=== PATIENT | female | born 1945 | race Caucasian/White ===

== ENCOUNTER 2019-03-04 12:33 | Emergency (ER) | payer OTHER ==
[~2019-03-04] VITALS: Ht 154.9 cm; Wt 63.5 kg
[~2019-03-04 12:33] MED LIST: ACETAMINOPHEN325 M1 PO; ASPIRIN EC81 M1 PO; AZITHROMYCIN 2250 MG; IBUPROFEN200 M2 PO; LEVAQUIN 500 M500 M4 PO; NOHOMEMEDICATIONS; PREDNISONE 5 MG5 MG PO; PROAIR HFA8.5 GM INH; PROVENTIL HFA6.7 G1 INH; SILVADENE20 GM TP; ZPAK PO
[2019-03-04 13:19] LABS: ABSOLUTE NEUTROPHILS 5.3 thou/uL (1.4-8.2); BASOPHILS 1.3 % (0.0-2.0); EOSINOPHILS 3.7 % (0.0-3.0); HEMATOCRIT 42.1 % (37.0-47.0); HEMOGLOBIN 13.7 gm/dL (12.0-15.0); LYMPHOCYTES 20.7 % (24.0-44.0); MCHC 32.5 g/dL (28.0-37.0); MCV 92.5 fL (80.0-100.0); MONOCYTES 6.6 % (1.0-8.0); PLATELET COUNT 266 thou/uL (150-400); POLYS 67.7 % (36.0-66.0); RBC 4.55 mil/uL (4.20-5.00); RDW 14.7 % (10.5-14.5); WBC 7.8 thou/uL (4.0-11.0)
[2019-03-04 13:23] LABS: ANION GAP 11 mmol/L (7-16); BUN 13 mg/dL (7-18); CALCIUM 9.8 mg/dL (8.5-10.1); CHLORIDE 106 mmol/L (98-107); CO2 27 mmol/L (21-32); CREATININE 1.1 mg/dL (0.6-1.0); GLUCOSE 96 mg/dL (74-106); POTASSIUM 3.7 mmol/L (3.5-5.1); SODIUM 144 mmol/L (136-145)
[2019-03-04 13:33] LABS: ALBUMIN 3.7 g/dL (3.4-5.0); MAGNESIUM 2.1 mg/dL (1.8-2.4); SGOT 32 U/L (15-37); SGPT 25 U/L (30-65); TOTAL BILIRUBIN 0.3 mg/dL (<0.1-1.0); TOTAL PROTEIN 7.5 g/dL (6.4-8.2); TROPONIN-I <0.06 ng/mL (<0.06)
[2019-03-04 13:59] LABS: URINE BILIRUBIN NEGATIVE (Negative); URINE BLOOD NEGATIVE (Negative); URINE CLARITY CLEAR; URINE COLOR YELLOW; URINE GLUCOSE-RANDOM* NEGATIVE (Negative); URINE KETONES NEGATIVE (Negative); URINE LEUKOCYTES-REFLEX NEGATIVE (Negative); URINE NITRITE-REFLEX NEGATIVE (Negative); URINE PROTEIN (DIPSTICK) NEGATIVE (Negative); URINE SPECIFIC GRAVITY <= 1.005 (1.005-1.035); URINE UROBILINOGEN 0.2 E.U./dl (0.2-1.0)
[2019-03-04] MEDS ORDERED: HYDROCHLOROTH12.5 M1 PO (14:05)
[2019-03-04 14:40] VITALS: BP 170/91
--- NOTE | 2019-03-07 13:10 | EKG ---
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
== END 2019-03-04 14:41 | disposition home or self-care (01) ==
LOC: ER 12:33
PROVIDERS: Emergency Medicine
DX: I10 Essential (primary) hypertension (principal); F17.210 Nicotine dependence, cigarettes, uncomplicated; Z86.73 Personal history of transient ischemic attack (TIA), and cerebral infarction without residual deficits; Z90.710 Acquired absence of both cervix and uterus

== ENCOUNTER 2020-02-03 23:28 | Emergency (ER) | payer OTHER ==
[~2020-02-03] VITALS: Ht 154.9 cm; Wt 56.7 kg
[~2020-02-03 23:28] MED LIST changes: +HYDROCHLOROTH12.5 M1 PO
[2020-02-04 00:41] LABS: ANION GAP 9 mmol/L (7-16); BUN 28 mg/dL (7-18); CALCIUM 9.2 mg/dL (8.5-10.1); CHLORIDE 104 mmol/L (98-107); CO2 27 mmol/L (21-32); CREATININE 1.3 mg/dL (0.6-1.0); GLUCOSE 147 mg/dL (74-106); POTASSIUM 4.1 mmol/L (3.5-5.1); SODIUM 140 mmol/L (136-145)
[2020-02-04 00:50] LABS: MAGNESIUM 1.9 mg/dL (1.8-2.4); TROPONIN-I <0.06 ng/mL (<0.06)
[2020-02-04 01:25] LABS: ABSOLUTE NEUTROPHILS 14.8 thou/uL (1.4-8.2); BASOPHILS 0.3 % (0.0-2.0); EOSINOPHILS 1.3 % (0.0-3.0); HEMATOCRIT 36.5 % (37.0-47.0); LYMPHOCYTES 2.3 % (24.0-44.0); MCH 30.1 pg (26.0-34.0); MCV 91.2 fL (80.0-100.0); MONOCYTES 2.9 % (1.0-8.0); PLATELET COUNT 307 thou/uL (150-400); POLYS 93.2 % (36.0-66.0); RBC 4.01 mil/uL (4.20-5.00); RDW 14.3 % (10.5-14.5); WBC 15.9 thou/uL (4.0-11.0)
[2020-02-04 03:30] LABS: URINE BILIRUBIN NEGATIVE (Negative); URINE BLOOD NEGATIVE (Negative); URINE CLARITY CLEAR; URINE COLOR YELLOW; URINE GLUCOSE-RANDOM* NEGATIVE (Negative); URINE KETONES NEGATIVE (Negative); URINE LEUKOCYTES-REFLEX NEGATIVE (Negative); URINE NITRITE-REFLEX NEGATIVE (Negative); URINE PROTEIN (DIPSTICK) NEGATIVE (Negative); URINE UROBILINOGEN 0.2 E.U./dl (0.2-1.0)
[2020-02-04 03:40] VITALS: BP 165/81
--- NOTE | 2020-02-04 15:26 | EKG ---
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
== END 2020-02-04 03:42 | disposition left against medical advice (07) ==
LOC: ER 23:28
PROVIDERS: Emergency Medicine
DX: D72.829 Elevated white blood cell count, unspecified (principal); R91.8 Other nonspecific abnormal finding of lung field; R26.2 Difficulty in walking, not elsewhere classified; R53.1 Weakness; F17.210 Nicotine dependence, cigarettes, uncomplicated; Z90.711 Acquired absence of uterus with remaining cervical stump; Z79.899 Other long term (current) drug therapy; Z88.6 Allergy status to analgesic agent

== ENCOUNTER 2020-11-08 06:58 | Inpatient (IN) | payer OTHER ==
[~2020-11-08] VITALS: Ht 160 cm; Wt 49.0 kg
[2020-11-08 07:16] VITALS: BP 144/67
[2020-11-08 07:54] LABS: BE(vivo) 1.5 mmol/L (-2 to +3); HCO3 24.3 mmol/L (22.0-26.0); PCO2 31.7 mmHg (35.0-45.0); pH 7.503 (7.360-7.450); sO2 93.3 % (92.0-98.0)
[2020-11-08 08:05] LABS: ABSOLUTE NEUTROPHILS 16.7 thou/uL (1.4-8.2); BASOPHILS 0.7 % (0.0-2.0); HEMATOCRIT 28.2 % (37.0-47.0); HEMOGLOBIN 8.8 gm/dL (12.0-15.0); LYMPHOCYTES 3.3 % (24.0-44.0); MCH 25.8 pg (26.0-34.0); MCHC 31.3 g/dL (28.0-37.0); MCV 82.3 fL (80.0-100.0); MONOCYTES 6.1 % (1.0-8.0); PLATELET COUNT 464 thou/uL (150-400); POLYS 89.9 % (36.0-66.0); RBC 3.43 mil/uL (4.20-5.00); RDW 14.4 % (10.5-14.5); WBC 18.6 thou/uL (4.0-11.0)
[2020-11-08 08:19] LABS: ANION GAP 7 mmol/L (7-16); BUN 19 mg/dL (7-18); CALCIUM 10.8 mg/dL (8.5-10.1); CHLORIDE 101 mmol/L (98-107); CO2 30 mmol/L (21-32); CREATININE 1.3 mg/dL (0.6-1.0); GLUCOSE 141 mg/dL (74-106); POTASSIUM 3.1 mmol/L (3.5-5.1); SODIUM 138 mmol/L (136-145)
[2020-11-08 08:23] LABS: ALBUMIN 2.6 g/dL (3.4-5.0); DIRECT BILIRUBIN 0.1 mg/dL (<0.1-0.2); MAGNESIUM 1.9 mg/dL (1.8-2.4); SGOT 17 U/L (15-37); SGPT 9 U/L (14-59); TOTAL BILIRUBIN 0.4 mg/dL (0.2-1.0); TOTAL PROTEIN 8.2 g/dL (6.4-8.2); TROPONIN-I <0.06 ng/mL (<0.06)
[2020-11-08] MEDS ORDERED: ZESTRIL5 MG PO (08:24)
[2020-11-08] MEDS ORDERED: LISINOPRIL-HCT1 EACH PO (08:25)
--- NOTE | 2020-11-08 08:58 | EKG ---
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
[2020-11-08 09:05] LABS: INR 1.06; PROTIME 11.5 Seconds (10.5-12.1)
[2020-11-08 09:06] LABS: APTT 29.1 Seconds (24.5-32.8)
[2020-11-08 14:08] VITALS: BP 108/52
[2020-11-08 14:38] VITALS: BP 119/59
[2020-11-08 15:00] VITALS: BP 120/54
--- NOTE | 2020-11-08 17:18 | NUR ---
PT TO THE UNIT FROM THE ER. ORIENTED TO ROOM AND BEDSPACE. ADMISSION ASSESSMENT/HISTORY COMPLETED WITH INFORMATION FROM . PT LIVES AT HOME WITH AND IS USUALLY INDEPENDANT WITH CARE - JUST TIRES EASILY. DOES USE A CANE AT TIME AND A WALKER WITH WHEELS/SEAT WHEN GOING LONG DISTANCES. PT TOE AND FINGER NAILS IN VERY POOR CONDITION - TOE NAILS EXTERELY LONG AND CURVY FROWING OUT FROM THE FOOT. FINEGER NAILS YELLOW BRON IN COLOUR AND CHIPED AND SPLIT. FAMILY IN TO VISIT PATIENT. PATIENT CONFUSED TO DATE/ TIME. NO CO'S AT THE PRESENT TIME.
[2020-11-08 19:55] VITALS: BP 116/54
[2020-11-09] VITALS (7 sets, daily range): BP systolic 116–147; BP diastolic 48–80
[2020-11-09 04:39] LABS: HEMATOCRIT 22.9 % (37.0-47.0); HEMOGLOBIN 7.3 gm/dL (12.0-15.0); MCH 26.5 pg (26.0-34.0); MCHC 31.7 g/dL (28.0-37.0); MCV 83.4 fL (80.0-100.0); RBC 2.74 mil/uL (4.20-5.00); RDW 14.3 % (10.5-14.5)
[2020-11-09 04:51] LABS: CALCIUM 9.8 mg/dL (8.5-10.1); POTASSIUM 3.3 mmol/L (3.5-5.1)
--- NOTE | 2020-11-09 14:05 | NUR ---
Case management assessment completed with the pt/her spouse Juan and a dtr Nelida. The pt is A&Ox3 but forgetful. Pt's spouse indicates that he is her caregiver although she is normally able to gait and do some of her adl's on her own. She has been needing more help recently and gets tired easily with any activity. They have 5 adult children and many grand kids that live locally and are very supportive and available to care for the pt when pt's spouse is outside the home. He still works odd mowing jobs; otherwise he is with her all the time. The eat breakfast out several times weekly and the pt continues to smoke. She indicates she has not intention of stopping but has cut back alot. The pt is being treated for pneumonia and has a hx of copd/cva. A lung mass was also found during her workup but she/spouse want to f/u with onc as an outpt. She is a DNR. She has a cane and a rolator walker for home use as needed. Pt's spouse notes they are getting a ramp for a couple of steps put in today. He does not want to consider hh/or snf referrals at md as he does not want her to be homebound or in a facility away from family. He is agreeable to outpt therapy referral here as he feels she could benefit from therapy but wants to be able to go out to eat or to the kids home as they desire or she is able. She has not gotten the covid vaccines as she is known to have had an allergic reaction to a recent flu shot. She is agreeable to home o2 and is aware of the risks with continued smoking. They would like a w/c as she is not able to walk distances at this time and they will need it to get her in/out to therapy and dr gonzalez. No DME provider preference; they just want an agency that accepts her [facility] medicare plan. Referral and clinical faxed to [facility] for home o2/w/c at md. Scripts requested for the dme as well as the outpt therapy from the attending/pcp Dr. Tobias. He will complete them in the am. Possible dc tomorrow. Pt and family aware that the lung mass may likely be cancer. They will f/u with her pcp for possible pall hh or hospice down the road. Support provided and cm role introduced.
--- NOTE | 2020-11-09 19:23 | NUR ---
ASSESSMENT CHARTED - MEDS PER JUL - NO CO'S OF PAIN OR NAUSEA - SEEN BY PHYS THERAPY THIS AM - EXERCISE OX DONE AND PT REQUIRING O2 FOR HOME USE. MEDS PER JUL. K+ REPLACED ORDERED .. FAMILY AT THE BEDSIDE FOR MOST OF THE SHIFT. ATE WELL TODAY FOR EACH MEAL STATING SHE WAS HUNGRY. PT TO GO HOME IN THE AM.
[2020-11-10] VITALS (8 sets, daily range): BP systolic 134–158; BP diastolic 58–94
[2020-11-10 04:36] LABS: HEMOGLOBIN 6.7 gm/dL (12.0-15.0)
[2020-11-10 04:37] LABS: HEMATOCRIT 20.6 % (37.0-47.0); MCH 27.1 pg (26.0-34.0); MCHC 32.7 g/dL (28.0-37.0); MCV 83.1 fL (80.0-100.0); RBC 2.48 mil/uL (4.20-5.00); RDW 14.3 % (10.5-14.5); WBC 15.8 thou/uL (4.0-11.0)
[2020-11-10 05:10] LABS: CALCIUM 9.1 mg/dL (8.5-10.1); POTASSIUM 3.1 mmol/L (3.5-5.1)
[2020-11-10] MEDS ORDERED: CEFDINIR300 MG PO (13:00)
--- NOTE | 2020-11-10 14:05 | NUR ---
Willy arrived and delivered oxygen and wc. Scripts on chart given to Willy. Patient has script for outpatient therapy as well. Rn aware of script to give to patient to arrange outpatiet therapy.
--- NOTE | 2020-11-10 16:36 | NUR ---
ASSUMED CARE SHIFT CHANGE. VSS. ASSESSMETNS CHARTED. HGB 6.7 THIS AM TRANSFUSED 2 UNITS PER ORDERS. PT BINH WELL. 2-3 L O2. AT APPROX 1530 PT BEGAN TO BECOME IRRITALBE PULLING OFF O2, ATTEMPTING TO GET OUT OF BED. FALL PRECAUTIONS REMAINED IN PLACE. PT MOVED TO 216. PHYSICIAN NOTIFIED, ORDERS RECEIVED. PT DID NOT WORK WITH PHYS THERAPY D/T LOW HGB. SPOUSE UPDATED ON POC, STATES THAT HOUSE IS NOT EQUIPPED FOR PT DC. PHYSICIAN NOTIFED, PLAN FOR DC TOMORROW AFTER PT WORKS WITH THERAPIES. PT INCONT B&B. STOOL OCCULT NEG. PT CURRENTLY LAYING DOWN, AGITATED AT TIMES. WILL CONT TO ASSESS NEEDS AND FOLLOW POC. WILL PASS ON REPORT TO FRANKLIN SEGURA.
--- NOTE | 2020-11-11 03:16 | NUR ---
PT IS ALERT TO SELF WITH SOME FOREGETATION. UP TO BATHROOM WITH ASSIST X1. LUNGS ARE CLEAR. ABDOMEN IS SOFT AND FLAT. DENIES ANY PAIN AT THIS TIME. WILL CONTINUE TO MONTIOR AND ASSESS PER MARISOLISNG. CALL LIGHT WITHIN REACH IF NEEDS ASSSISTANCE PER STAFFF
--- NOTE | 2020-11-11 03:54 | NUR ---
sleeping with sleep apnea machine on. vitals stable no complaints of pain noted . muniz to dd with yellow urine. blood sugars monitor with sliding scale insulin. will continue to moitor and assses per zeyad call light within reach if needs asssitance
[2020-11-11 04:02] VITALS: BP 158/84
--- NOTE | 2020-11-11 04:03 | NUR ---
pt is sleeping vitals stable. pt is alert to self with confusion noted. call light within reach if needs assstance. tries to get out of bed pccasionaly impulsive. bed alarm on pt be.for safety . denies any pain issues. watches tv during the night time. will continue to montior and assess per nursing
[2020-11-11 08:02] VITALS: BP 167/82
[2020-11-11 08:15] VITALS: BP 167/82
[2020-11-11 10:58] VITALS: BP 122/48
--- NOTE | 2020-11-11 11:48 | NUR ---
PT CARE ASSUMED AT 0700. ASSESSMENTS CHARTED. MEDICATIONS CHARTED. RH IV. SINUS RHYTHM. INCONTINENT OF URINE. 02 2LPM NC, HOME O2. HOME WHEELCHAIR. PT DISCHARGED TO HOME. DISCHARGE PAPERWORK SIGNED. TELEMETRY D/C'D. IV D/C'D.
== END 2020-11-11 11:46 | disposition home or self-care (01) | DRG 871 ==
LOC: ER 06:58 → 2N 09:37 → EROBS 09:37 → 2N 15:01
PROVIDERS: Emergency Medicine; ADMIT Family Medicine; ATTEND Family Medicine
PROC: 30233N1 Transfusion of Nonautologous Red Blood Cells into Peripheral Vein, Percutaneous Approach (ICD-10-PCS; principal; 2020-11-10)
DX: A41.9 Sepsis, unspecified organism (principal); J18.9 Pneumonia, unspecified organism; J96.00 Acute respiratory failure, unspecified whether with hypoxia or hypercapnia; J44.1 Chronic obstructive pulmonary disease with (acute) exacerbation; J44.0 Chronic obstructive pulmonary disease with (acute) lower respiratory infection; D64.9 Anemia, unspecified; R91.8 Other nonspecific abnormal finding of lung field; I10 Essential (primary) hypertension; F17.210 Nicotine dependence, cigarettes, uncomplicated; F03.90 Unspecified dementia, unspecified severity, without behavioral disturbance, psychotic disturbance, mood disturbance, and anxiety; E87.6 Hypokalemia; Z20.822 Contact with and (suspected) exposure to COVID-19; Z90.710 Acquired absence of both cervix and uterus; Z79.82 Long term (current) use of aspirin; Z79.899 Other long term (current) drug therapy; I69.398 Other sequelae of cerebral infarction
CPT/HCPCS: 10081

== ENCOUNTER 2020-12-11 05:25 | Inpatient (IN) | payer OTHER ==
[~2020-12-11] VITALS: Ht 162.6 cm; Wt 47.6 kg
--- NOTE | ~2020-12-11 | EMS ---
[address] [address] EMS Patient Care Report Name: LIVIA ZAVALA Room #: 436-P ADM IN M.R.#: [id number] Admission: 12/11/20 Attend Phys: Derick Tobias MD Discharge: Date of : 41 Report #: [id number] THIS REPORT FOR: //name// Report Transmitted: 12/12/2020 13:27 EMS Care Summary [place], [place] Incident [id number] @ 12/11/2020 04:52 Incident Location [address] [place] [address] Patient LIVIA ZAVALA Female, 75 Years 1945 Patient Address [address] [place] [address] Patient History Stroke/CVA,Willson's-Palsy, Patient Allergies No known allergies, Patient Medications Lisinopril, Aspirin, Chief Complaint Weakness Disposition Transported No Lights/[place] Dispatch Reason Sick Person Transported To [facility] Narrative AOS to find the pt sitting on the couch, the pt's called 911 stating the pt was very weak and had not been eating. The pt was very weak and unable to stand or ambulate by herself. The pt was transported to [facility] where care [place] [address] EMS Patient Care Report Name: LIVIA ZAVALA Room #: 436-P ADM IN M.R.#: [id number] Admission: 12/11/20 Attend Phys: Derick Tobias MD Discharge: Date of : 41 Report #: [id number] Initial Vitals @05:11SpO2: 92, @05:14P: 102,BP: 116/72,CO: 1,SpO2: 93, @05:01P: 108,R: 20,BP: 114/75,Pain: 0/10,GCS: 15,Glucose: 166,CO: 0,SpO2: 93,Revised Trauma: 12, Assessments @04:58MENTAL:Confused,Person Oriented,SKIN:Hot,HEENT:Head/Face: No Abnormalities,Neck/Airway: No Abnormalities,LUNG SOUNDS:General: No Abnormalities,Left Upper: No Abnormalities,Right Upper: No Abnormalities,Left Lower: No Abnormalities,Right Lower: No Abnormalities,ABDOMEN:General: No Abnormalities,Left Upper: No Abnormalities,Right Upper: No Abnormalities,Left Lower: No Abnormalities,Right Lower: No Abnormalities,PELVIS//GI:EXTREMITIES:Right Leg: Weakness,Left Leg: Weakness,Right Arm: Weakness,Left Arm: Weakness,Capillary Refill: Left Upper: < 2 Sec,Capillary Refill: Right Upper: < 2 Sec,PULSE:Radial: 2+ Normal,NEURO:No Abnormalities, Impression Generalized Weakness Timeline 04:50,Call Received 04:50,Dispatch Notified 04:52,Dispatched 04:53,En Route 04:56,On Scene 04:58,At Patient 05:01,BP: 114/75 M,PULSE: 108,RR: 20 R,SPO2: 93 Ox,ETCO2: ,B,PAIN: 0,GCS: 15, 05:11,BP: / M,PULSE: ,RR: R,SPO2: 92 Ox,ETCO2: ,BG: ,PAIN: ,GCS: , 05:12,Depart Scene 05:14,BP: 116/72 M,PULSE: 102,RR: R,SPO2: 93 Ox,ETCO2: ,BG: ,PAIN: ,GCS: , 05:20,At Destination 05:34,Call Closed Disclaimer v1.1 Copyright 2020 [employer] This EMS Care Summary contains data elements from the applicable legal record (which may be displayed differently). It is designed to provide pertinent information for the following purposes: continuity of care, clinical quality, and state data reporting. The complete legal record is available to ED staff and administrators of the receiving hospital in ES's Patient Tracker. All data is provided "as is."
[~2020-12-11 05:25] MED LIST changes: +CEFDINIR300 MG PO; +LISINOPRIL-HCT1 EACH PO; +ZESTRIL5 MG PO
[2020-12-11 05:26] VITALS: BP 149/79
[2020-12-11 05:49] LABS: URINE BILIRUBIN NEGATIVE (Negative); URINE BLOOD NEGATIVE (Negative); URINE CLARITY CLEAR; URINE COLOR YELLOW; URINE GLUCOSE-RANDOM* NEGATIVE (Negative); URINE KETONES NEGATIVE (Negative); URINE PROTEIN (DIPSTICK) NEGATIVE (Negative)
[2020-12-11 06:00] LABS: URINE LEUKOCYTES-REFLEX 1+ (Negative); URINE NITRITE-REFLEX POSITIVE (Negative)
[2020-12-11 06:04] LABS: ABSOLUTE NEUTROPHILS 8.3 thou/uL (1.4-8.2); BASOPHILS 0.8 % (0.0-2.0); EOSINOPHILS 1.3 % (0.0-3.0); HEMATOCRIT 30.7 % (37.0-47.0); HEMOGLOBIN 10.1 gm/dL (12.0-15.0); MCH 26.8 pg (26.0-34.0); MCHC 32.9 g/dL (28.0-37.0); MCV 81.3 fL (80.0-100.0); MONOCYTES 6.2 % (1.0-8.0); PLATELET COUNT 400 thou/uL (150-400); POLYS 82.7 % (36.0-66.0); RBC 3.78 mil/uL (4.20-5.00); RDW 15.7 % (10.5-14.5); WBC 10.1 thou/uL (4.0-11.0)
[2020-12-11 06:05] LABS: ALBUMIN 2.7 g/dL (3.4-5.0); ANION GAP 5 mmol/L (7-16); BUN 29 mg/dL (7-18); CHLORIDE 98 mmol/L (98-107); CO2 34 mmol/L (21-32); CREATININE 1.5 mg/dL (0.6-1.0); GLUCOSE 110 mg/dL (74-106); SGOT 21 U/L (15-37); SGPT 9 U/L (14-59); SODIUM 137 mmol/L (136-145); TOTAL BILIRUBIN 0.5 mg/dL (0.2-1.0); TOTAL PROTEIN 7.8 g/dL (6.4-8.2); TROPONIN-I <0.06 ng/mL (<0.06)
[2020-12-11 06:07] LABS: CALCIUM 12.3 mg/dL (8.5-10.1)
[2020-12-11 06:10] LABS: CASTS None Seen /LPF (None Seen); MUCUS 0-3 Light strn/LPF (None Seen); SQUAMOUS 0-3 Few /LPF (0-3)
[2020-12-11 06:11] LABS: CRYSTALS None Seen /LPF (None Seen); URINE RBC None Seen /HPF (NONE SEEN); URINE WBC-REFLEX 6-15 Few /HPF (0-5); WBC CLUMPS Few (None Seen)
--- NOTE | 2020-12-11 07:51 | EKG ---
[place] [address] [facility] [address] ELECTROCARDIOGRAM REPORT Name: LIVIA ZAVALA Room #: [facility] [id number] Admission: 12/11/20 Attend Phys: Discharge: Date of : 41 Report #: [id number] 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
[2020-12-11 08:22] VITALS: BP 126/52
[2020-12-11 09:00] VITALS: BP 118/61
[2020-12-11 13:41] LABS: CREATININE 1.3 mg/dL (0.6-1.0); PHOSPHORUS 2.6 mg/dL (2.6-4.7)
[2020-12-11 19:38] VITALS: BP 145/78
--- NOTE | 2020-12-11 22:45 | NUR ---
ASSUMED PT CARE AT 0900 FROM ED. PT IS ALERT & ORIENTED X3 PERSON, PLACE, SITUATION. PT HAS IV SITE ON R FA. FINISHED ADMISSION THIS AM. GIVEN POTASSIUM ORDERED. PT HAS 2L NC 02. PT HAS DENTURES ON. PT VOIDED DURING THE SHIFT. PT WAS AT THE BEDSIDE. CONTINUE CARE UNTIL 2300. PT ON THE BED SLEEPING WITH SCD ON, BED ON THE LOWEST POSITION, SIDE RAILS UP, CALL LIGHT WITHIN REACH. WILL CONTINUE TO MONITOR PT. FOLLOW POC.
[2020-12-12 03:34] LABS: HEMATOCRIT 25.5 % (37.0-47.0); HEMOGLOBIN 8.4 gm/dL (12.0-15.0); MCHC 32.9 g/dL (28.0-37.0); RBC 3.1 mil/uL (4.20-5.00); RDW 15.8 % (10.5-14.5); WBC 8.4 thou/uL (4.0-11.0)
[2020-12-12 03:51] LABS: ALBUMIN 2.1 g/dL (3.4-5.0); CREATININE 1.1 mg/dL (0.6-1.0); POTASSIUM 3.3 mmol/L (3.5-5.1); TOTAL BILIRUBIN 0.3 mg/dL (0.2-1.0); TOTAL PROTEIN 5.7 g/dL (6.4-8.2)
--- NOTE | 2020-12-12 04:01 | NUR ---
CONT CARE OF PT @2300 PT RESTING IN BED. IV INTACT AND FLUIDS INFUSING. PT INCONTINENT OF BLADDER. PERICARE PROVIDED. FALL PREC IN PLACE. NO FURTHER SIGNS OF DISCOMFORT WILL CONT TO MONITOR.
[2020-12-12 04:27] LABS: CALCIUM 9.9 mg/dL (8.5-10.1)
[2020-12-12 08:16] VITALS: BP 151/67
--- NOTE | 2020-12-12 11:45 | NUR ---
ASSUMD CARE OF PT AT 0700 HIS MORNING. PT IS ADMITED FOR UTI AND WEAKNESS. PT IS EIPPNOV1KAE WITH 1X ASST. SKIN IS INTACT WITH NO TENTING. EYES PERRLA AND LUNGS ARE CLEAR IN UPPER ALANIS AND SLIGHTLY DIMINISHED IN THE LOWER. CR<3SECX4 AND DISTAL PULSES ARE STRONG AND =. ASSESSMENTS NOTED IN THE CHART AND OTHERWISE UNREMARKABLE. IV IN RT FA WITH NS AT 100ML/HR. CALL LIGHT AND OTHER NEEDS ARE WITHIN REACH. MEDS AND TX GIVEN NEEDED AND SCHEDULED.
--- NOTE | 2020-12-12 14:03 | NUR ---
ASSESSMENT: CM REVIEWED CHART AND MET WITH PATIENT AT THE BEDSIDE. PT IS CONFUSED. PT WAS ADMITTED WITH INCREASED WEAKNESS. CM REACHED OUT TO PATIENTS . PT LIVES AT HOME WITH HIM IN A RANCH STYLE HOME. PT HAS A RAMP TO ENTER THE HOME AND ALL NEEDS ARE ON ONE LEVEL. PT HAS A WHEELCHAIR AT HOME TO ASSIST AND IS HER PRIMARY CARE PROVIDER. PT ALSO HAS 5 ADULT CHILDREN WHO ARE VERY SUPPORTIVE AND HELPFUL. PT WAS GOING TO OUTPATIENT THERAPY HERE AT [facility] AND DOING WELL. PT HAS OXYGEN ARRANGED AT HOME THROUGH [facility] AND [facility] 2L AT HER BASELINE. PT HAS HX OF LUNG MASS/DEMENITA BUT DOES NOT WANT A WORKUP FOR CANCER. CM SPOKE WITH ATTENDING WHO REPORTS PT MAY BENEFIT FROM PALLIATIVE/HOSPICE CARE. CM REACHED OUT TO PATIENTS OT DISCUSS. HE REPORTS THEY DO NOT LIKE PEOPLE IN THEIR HOME AND HE REPORTS HAVING SO MUCH SUPPORT FROM FAMILY HE WISHES TO RETURN TO HOW THINGS WERE. CM EDUCATED ON BENEFITS SERVICES OF HH/PALLIATIVE/HOSPICE CARE BUT THEY ARE DECLINING AT THIS TIME. CM UPDATED ATTENDING. CM WILL CONTINUE TO FOLLOW TO ASSIST NEEDED.
[2020-12-12 16:41] VITALS: BP 126/70
[2020-12-12 19:05] VITALS: BP 117/52
--- NOTE | 2020-12-13 03:14 | NUR ---
ASSESSED AT START OF SHIFT. PT A&OX2 HX OF DEMENTIA. RESTING IN BED. IV INTACT AND FLUIDS INFUSING. DENIES PAIN N/V. ON 2L OF O2 BASELINE. PT INCONTINET OF BLADDER PERICARE PROVIDED. FALL PREC IN PLACE AND CALL LIGHT AT REACH WILL CONT TO MONITOR.
[2020-12-13 04:37] VITALS: BP 136/68
[2020-12-13 07:50] VITALS: BP 130/70
--- NOTE | 2020-12-13 15:04 | NUR ---
ON-GOING ASSESSMENT: CM REVIEWED CHART AND SPOKE WITH ATTENDING. PT REMAINS ON IV LASIX AND FLUIDS. PT CONTINUES TO WORK WITH PT. PT AND DECLINING SNF/HH/HOSPICE. PLANS TO RETURN LIKELY HOME TOMORROW WITH TO ASSIST WITH CARE.
[2020-12-13 16:43] VITALS: BP 142/68
[2020-12-13 19:03] VITALS: BP 144/65
--- NOTE | 2020-12-13 19:36 | NUR ---
ASSUMED PT CARE THIS AM. PT IS ALERT & ORIENTED X2 PERSON AND PLACE. PT HAS IV SITE ON R FA RUNNING NS @ 100ML/HR. PT HAS EXTERNAL CATH IN PLACE AND USES BEDPAN. PHYSICAL AND OCCUPATIONAL THERAPY WAS WORKING WITH PATIENT TODAY. PT IS INCONTINENT OF BOWEL AND BLADDER. PT IS ON 2L NC O2. PT HAS POOR APPETITE. NO C/O OF PAIN, NAUSEA AND VOMITING. PROBABLY DC TOMORROW PER DR ACOSTA. PT ON THE BED, BED ON THE LOWEST POSITION, SIDE RAILS UP, CALL LIGHT WITHIN REACH. WILL CONTINUE TO MONITOR PT. FOLLOW POC.
--- NOTE | 2020-12-14 01:53 | NUR ---
ASSESSED AT START OF SHIFT. PT RESTING IN BED. DENIES PAIN NAUSEA, VOMITING. IV INTACT AND FLUIDS INFUSING. PT INCONTINENT OF BLADDER. EVENING MEDS GIVEN WITH SIPS OF WATER, PT BINH IT WELL. ON 2L OF O2. HOURLY ROUNDING DONE, PT REPOSITIONED FOR COMFORT. FALL PREC IN PLACE AND CALL LIGHT AT REACH WILL CONT TO MONITOR.
[2020-12-14 04:29] VITALS: BP 136/60
[2020-12-14 07:30] VITALS: BP 132/70
[2020-12-14] MEDS ORDERED: CIPROFLOXACIN250 M2 PO (07:58)
[2020-12-14 08:58] LABS: HEMOGLOBIN 8.7 gm/dL (12.0-15.0); MCH 26.4 pg (26.0-34.0); MCHC 32.1 g/dL (28.0-37.0); MCV 82.3 fL (80.0-100.0); RBC 3.27 mil/uL (4.20-5.00); RDW 16.1 % (10.5-14.5); WBC 8.9 thou/uL (4.0-11.0)
[2020-12-14 09:07] LABS: CALCIUM 8.7 mg/dL (8.5-10.1); CREATININE 1.1 mg/dL (0.6-1.0)
[2020-12-14 09:13] LABS: POTASSIUM 2.8 mmol/L (3.5-5.1)
[2020-12-14] MEDS ORDERED: KLOR-CON M2020 MEQ PO (10:41)
[2020-12-14 11:00] VITALS: BP 132/70
--- NOTE | 2020-12-14 11:02 | NUR ---
on-going assessment: CM REVIEWED CHART AND SPOKE WITH PT AT THE BEDSIDE. PT AND CONTINUE TO DENY THE NEED FOR HH/HOSPICE/PALLIATIVE CARE/ OR SNF. PT WISHES TO RETURN HOME WITH THEY WERE PRIOR TO ADMISSION. CM REPORTED TO PTS AND PT THAT IF THEY CHANGE THEIR MIND TO CONTACT PCP AND HE CAN ORDERS HH. PT AND REPORT NO FURTHER NEEDS FROM CM.
== END 2020-12-14 11:38 | disposition home or self-care (01) | DRG 180 ==
LOC: ER 05:25 → 4S 08:16 → EROBS 08:16 → 4S 08:38
PROVIDERS: Emergency Medicine; Hospitalist; ADMIT Family Medicine; ATTEND Family Medicine
DX: C34.90 Malignant neoplasm of unspecified part of unspecified bronchus or lung (principal); N17.0 Acute kidney failure with tubular necrosis; E43 Unspecified severe protein-calorie malnutrition; N39.0 Urinary tract infection, site not specified; Z68.1 Body mass index [BMI] 19.9 or less, adult; I69.351 Hemiplegia and hemiparesis following cerebral infarction affecting right dominant side; E83.52 Hypercalcemia; E87.6 Hypokalemia; R53.81 Other malaise; D63.8 Anemia in other chronic diseases classified elsewhere; B96.5 Pseudomonas (aeruginosa) (mallei) (pseudomallei) as the cause of diseases classified elsewhere; J45.909 Unspecified asthma, uncomplicated; F03.90 Unspecified dementia, unspecified severity, without behavioral disturbance, psychotic disturbance, mood disturbance, and anxiety; J44.9 Chronic obstructive pulmonary disease, unspecified; I10 Essential (primary) hypertension; Z90.710 Acquired absence of both cervix and uterus; Z71.6 Tobacco abuse counseling; Z20.822 Contact with and (suspected) exposure to COVID-19
CPT/HCPCS: 10102

== ENCOUNTER 2020-12-21 15:50 | Inpatient (IN) | payer OTHER ==
[~2020-12-21] VITALS: Ht 152.4 cm; Wt 49.9 kg
[~2020-12-21 15:50] MED LIST changes: +CIPROFLOXACIN250 M2 PO; +KLOR-CON M2020 MEQ PO
[2020-12-21 16:03] VITALS: BP 104/81
[2020-12-21 17:38] LABS: ABSOLUTE NEUTROPHILS 8.4 thou/uL (1.4-8.2); BASOPHILS 0.8 % (0.0-2.0); EOSINOPHILS 1.9 % (0.0-3.0); HEMATOCRIT 30.4 % (37.0-47.0); HEMOGLOBIN 9.9 gm/dL (12.0-15.0); LYMPHOCYTES 11.3 % (24.0-44.0); MCH 26.8 pg (26.0-34.0); MCHC 32.6 g/dL (28.0-37.0); MCV 82.1 fL (80.0-100.0); MONOCYTES 8.7 % (1.0-8.0); PLATELET COUNT 436 thou/uL (150-400); POLYS 77.3 % (36.0-66.0); RDW 16.4 % (10.5-14.5); WBC 10.9 thou/uL (4.0-11.0)
[2020-12-21 17:49] LABS: CALCIUM 8.5 mg/dL (8.5-10.1); CREATININE 1.2 mg/dL (0.6-1.0); POTASSIUM 3.1 mmol/L (3.5-5.1)
[2020-12-21 17:55] LABS: ALBUMIN 2.5 g/dL (3.4-5.0); TOTAL BILIRUBIN 0.5 mg/dL (0.2-1.0); TOTAL PROTEIN 7.7 g/dL (6.4-8.2)
--- NOTE | 2020-12-21 18:00 | NUR ---
PER DR. ACOSTA PT IS TO BE ADMITTED TO THE REHAB UNIT BUT NEEDS TO GO TO THE COVID UNIT PT HAS HAD COVID-19 EXPOSURE FROM SPOUSE WHO IS CURRENTLY AT PT IN THIS HOSPITAL. PT STATED TO HAVE RECENT DX OF LUNG CA AND IS REFUSING ALL TX. PT HAS HX OF DEMENTIA, UNSURE OF PT ACTUAL BASELINE. UNABLE TO OBTAIN FULL HX OR ASSESSMENT PT IS NOT A GOOD HISTORIAN AND PT NOT WANTING RN TO ASSESS HER. PT IS EMACIATED IN APPEARS, SKIN COLOR IS TEMPLE AND DUSKY, PT DENIES PAIN SOB OR ANY S/S. PT VSS ON RA. CALL LIGHT IS WITHIN REACH AND ENCOURAGED TO USE. PT COVERED WITH WARM BLANKETS.
--- NOTE | 2020-12-21 19:07 | NUR ---
REPORT GIVEN TO COLTON HARMON AT THIS TIME
[2020-12-21 19:52] LABS: URINE BLOOD NEGATIVE (Negative); URINE CLARITY CLEAR; URINE COLOR YELLOW; URINE GLUCOSE-RANDOM* NEGATIVE (Negative); URINE KETONES NEGATIVE (Negative); URINE NITRITE-REFLEX NEGATIVE (Negative); URINE PROTEIN (DIPSTICK) TRACE (Negative); URINE SPECIFIC GRAVITY 1.025 (1.005-1.035)
[2020-12-21 20:01] LABS: URINE LEUKOCYTES-REFLEX 2+ (Negative)
[2020-12-21 20:03] LABS: ICTOTEST (BILI CONFIRMATORY) Negative (Negative); URINE BILIRUBIN NEGATIVE (Negative)
[2020-12-21 20:06] LABS: SQUAMOUS 4-10 Moderate /LPF (0-3)
[2020-12-21 20:07] LABS: HYALINE CASTS 4-10 Moderate /LPF (None Seen)
[2020-12-21 20:08] LABS: BACTERIA-REFLEX 1-9 Few /HPF (None Seen); CRYSTALS None Seen /LPF (None Seen); URINE RBC None Seen /HPF (NONE SEEN); URINE WBC-REFLEX 6-15 Few /HPF (0-5); YEAST-REFLEX Present (None Seen)
[2020-12-21 20:39] VITALS: BP 98/59
[2020-12-22 03:17] VITALS: BP 118/70
[2020-12-22 05:09] LABS: HEMATOCRIT 25.5 % (37.0-47.0); HEMOGLOBIN 8.5 gm/dL (12.0-15.0); MCH 26.9 pg (26.0-34.0); MCHC 33.4 g/dL (28.0-37.0); MCV 80.7 fL (80.0-100.0); RBC 3.16 mil/uL (4.20-5.00); RDW 16.8 % (10.5-14.5)
[2020-12-22 05:26] LABS: CALCIUM 7.3 mg/dL (8.5-10.1); CREATININE 1.1 mg/dL (0.6-1.0)
[2020-12-22 05:32] LABS: POTASSIUM 2.5 mmol/L (3.5-5.1)
--- NOTE | 2020-12-22 09:51 | EKG ---
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
[2020-12-22 15:30] VITALS: BP 122/45
--- NOTE | 2020-12-22 16:10 | NUR ---
ASSUMED CARE AT SHIFT CHANGE. PT A/ O X 1-2. WEAK AND FRAIL. PT STATES SHE JUST WANTS TO GO HOME. POOR APPETITE. DISCHARGING TO HOME TODAY AND WANTS TO TAKE PT HOME WELL. DR ACOSTA NOTIFIED. PT TO DC HOME WITH SPOUSE AND CHILDREN THIS AFTERNOON. F/U WITH DR ACOSTA'S OFFICE. IV ZOSYN DOSE COMPLETED BEFORE DISCHARGE. DC AND FU INFO GIVEN, PT ASSISTED TO CAR VIA WC WITH RN AND FAMILY. IV REMOVED PRIOR TO DC.
[2020-12-22 16:14] VITALS: BP 147/85
== END 2020-12-22 16:15 | disposition home or self-care (01) | DRG 690 ==
LOC: ER 15:50 → EROBS 23:21
PROVIDERS: Nurse Practitioner Family; ADMIT Family Medicine; ATTEND Family Medicine
DX: N30.01 Acute cystitis with hematuria (principal); F03.91 Unspecified dementia, unspecified severity, with behavioral disturbance; J45.909 Unspecified asthma, uncomplicated; J44.9 Chronic obstructive pulmonary disease, unspecified; I10 Essential (primary) hypertension; E87.6 Hypokalemia; Z20.822 Contact with and (suspected) exposure to COVID-19; R53.81 Other malaise; F17.210 Nicotine dependence, cigarettes, uncomplicated; Z86.73 Personal history of transient ischemic attack (TIA), and cerebral infarction without residual deficits; Z90.710 Acquired absence of both cervix and uterus; Z85.118 Personal history of other malignant neoplasm of bronchus and lung; Z91.19 Patient's noncompliance with other medical treatment and regimen

== ENCOUNTER 2020-12-29 12:43 | Emergency (ER) | payer OTHER ==
[~2020-12-29] VITALS: Ht 152.4 cm; Wt 45.4 kg
--- NOTE | ~2020-12-29 | EMS ---
[address] [address] EMS Patient Care Report Name: LIVIA ZAVALA Room #: DEP VANDANA Lombardo#: [id number] Admission: 12/29/20 Attend Phys: Discharge: 12/29/20 Date of : 41 Report #: [id number] THIS REPORT FOR: //name// Report Transmitted: 01/01/2021 12:05 EMS Care Summary [place], [place] Incident [id number] @ 12/29/2020 12:01 Incident Location [address] [place] [address] Patient LIVIA ZAVALA Female, 75 Years 1945 Patient Address [address] [place] [address] Patient History Stroke/CVA,Willson's-Palsy, Patient Allergies No known allergies, Patient Medications Aspirin, Lisinopril, Chief Complaint Nausea and Vomiting Disposition Transported No Lights/[place] Dispatch Reason Convulsions/Seizure Transported To [facility] Narrative Medic 39 was dispatched to a seizure. Upon arrival patient is a 75 year old female who is alert and oriented. Patient's on location stated "she was just sitting in the chair and slouched back and it looked like she had a seizure that lasted 5 seconds." Patient did not [place] [address] EMS Patient Care Report Name: LIVIA ZAVALA Room #: DEP [facility].#: [id number] Admission: 12/29/20 Attend Phys: Discharge: 12/29/20 Date of : 41 Report #: [id number] pain or difficulty breathing. Vital signs were obtained and monitored. Patient wanted to be transported to the hospital to be evaluated. During transport no changes noted. Upon arrival of our destination the crew was advised to take the patient to ER room 1 where the crew was met by nursing staff. Patient care report was given to staff and they did not have any questions for the crew. Medic 39 returned to service. Anaya Dave NRP Initial Vitals @12:16P: 92,R: 18,BP: 104/64,Pain: 0/10,GCS: 15,Glucose: 141,SpO2: 92,Revised Trauma: 12,OH Suspected: false @12:30P: 98,R: 18,BP: 99/65,Pain: 0/10,GCS: 15,SpO2: 98,Revised Trauma: 12, Assessments @12:15MENTAL:Place Oriented,Time Oriented,Person Oriented,Event Oriented,SKIN:HEENT:Head/Face: No Abnormalities,Eyes: No Abnormalities,Neck/Airway: No Abnormalities,LUNG SOUNDS:General: No Abnormalities,Left Upper: No Abnormalities,Right Upper: No Abnormalities,Left Lower: No Abnormalities,Right Lower: No Abnormalities,ABDOMEN:General: No Abnormalities,Left Upper: No Abnormalities,Right Upper: No Abnormalities,Left Lower: No Abnormalities,Right Lower: No Abnormalities,PELVIS//GI:No Abnormalities,EXTREMITIES:Left Arm: No Abnormalities,Right Arm: No Abnormalities,Left Leg: No Abnormalities,Right Leg: No Abnormalities,PULSE:NEURO:No Abnormalities, Impression Vomiting Procedures @12:15ALS AssessmentResponse: UnchangedSucceeded@12:17StretcherResponse: Unchanged@12:22Saline Lock 10cc (20 ga) Site: Antecubital-RightResponse: UnchangedSucceeded@12:163-Lead ECGResponse: UnchangedSucceeded Timeline 11:59,Call Received 11:59,Dispatch Notified 12:01,Dispatched 12:01,En Route 12:14,On Scene 12:15,At Patient 12:15,ALS Assessment,Response: UnchangedSucceeded, 12:16,3-Lead ECG,Response: UnchangedSucceeded, [facility] [address] [address] EMS Patient Care Report Name: LIVIA ZAVALA Room #: DANIKA Lombardo#: [id number] Admission: 12/29/20 Attend Phys: Discharge: 12/29/20 Date of : 41 Report #: [id number] 12:16,BP: 104/64 M,PULSE: 92,RR: 18 R,SPO2: 92 Ox,ETCO2: ,B,PAIN: 0,GCS: 15, 12:17,Stretcher,Response: Unchanged 12:22,Saline Lock 10cc 20 ga Site: Antecubital-Right,Response: UnchangedSucceeded, 12:24,Depart Scene 12:30,BP: 99/65 M,PULSE: 98,RR: 18 R,SPO2: 98 Ox,ETCO2: ,BG: ,PAIN: 0,GCS: 15, 12:45,At Destination 12:53,Call Closed Disclaimer v1.1 Copyright 2020 [employer] This EMS Care Summary contains data elements from the applicable legal record (which may be displayed differently). It is designed to provide pertinent information for the following purposes: continuity of care, clinical quality, and state data reporting. The complete legal record is available to ED staff and administrators of the receiving hospital in [employer]'s Patient Tracker. All data is provided "as is."
[2020-12-29 13:11] LABS: ABSOLUTE NEUTROPHILS 8.3 thou/uL (1.4-8.2); BASOPHILS 0.7 % (0.0-2.0); EOSINOPHILS 0.9 % (0.0-3.0); HEMATOCRIT 27.4 % (37.0-47.0); HEMOGLOBIN 8.8 gm/dL (12.0-15.0); LYMPHOCYTES 8.9 % (24.0-44.0); MCH 26.1 pg (26.0-34.0); MCHC 32.2 g/dL (28.0-37.0); PLATELET COUNT 374 thou/uL (150-400); POLYS 83.5 % (36.0-66.0); RBC 3.38 mil/uL (4.20-5.00); RDW 16.3 % (10.5-14.5)
[2020-12-29 13:36] LABS: ANION GAP 9 mmol/L (7-16); BUN 12 mg/dL (7-18); CALCIUM 9.9 mg/dL (8.5-10.1); CHLORIDE 99 mmol/L (98-107); CO2 28 mmol/L (21-32); CREATININE 1.1 mg/dL (0.6-1.0); GLUCOSE 140 mg/dL (74-106); MAGNESIUM 1.6 mg/dL (1.8-2.4); SODIUM 136 mmol/L (136-145); TROPONIN-I <0.06 ng/mL (<0.06)
[2020-12-29 13:39] LABS: POTASSIUM 2.4 mmol/L (3.5-5.1)
[2020-12-29 16:10] LABS: URINE BLOOD NEGATIVE (Negative); URINE CLARITY CLEAR; URINE COLOR YELLOW; URINE GLUCOSE-RANDOM* NEGATIVE (Negative); URINE KETONES 1+ (Negative); URINE NITRITE-REFLEX NEGATIVE (Negative); URINE PROTEIN (DIPSTICK) NEGATIVE (Negative); URINE SPECIFIC GRAVITY 1.025 (1.005-1.035); URINE UROBILINOGEN 0.2 E.U./dl (0.2-1.0)
[2020-12-29 16:22] LABS: URINE LEUKOCYTES-REFLEX 1+ (Negative)
[2020-12-29 16:24] LABS: ICTOTEST (BILI CONFIRMATORY) Negative (Negative); URINE BILIRUBIN NEGATIVE (Negative)
[2020-12-29 16:34] LABS: CASTS None Seen /LPF (None Seen); SQUAMOUS 0-3 Few /LPF (0-3); URINE RBC None Seen /HPF (NONE SEEN)
[2020-12-29 16:35] LABS: BACTERIA-REFLEX 1-9 Few /HPF (None Seen); CRYSTALS None Seen /LPF (None Seen); YEAST-REFLEX Present (None Seen)
[2020-12-29] MEDS ORDERED: KLOR-CON20 ME1 PO (17:43)
[2020-12-29 18:14] VITALS: BP 135/68
--- NOTE | 2020-12-30 08:45 | EKG ---
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: : 1945 Requested By: Joaquina Preston Order Number: [id number] MD: Franklyn Singh Measurements Intervals [place] Rate: 87 P: 77 [place]: 174 QRS: -59 QRSD: 134 T: 101 QT: 442 QTc: 532 Interpretive Statements Sinus rhythm Left bundle branch block Baseline wander in lead(s) V1 Compared to ECG 12/21/2020 17:11:56 No significant changes Electronically Signed On 12-30-2020 8:45:36 CDT by Franklyn Singh [email or web address] <ELECTRONICALLY SIGNED> By: Franklyn Singh MD, [facility] 12/30/20 0845 [id number] Franklyn Singh MD, FAC /EPI
== END 2020-12-29 18:15 | disposition home or self-care (01) ==
LOC: ER 12:43
PROVIDERS: Emergency Medicine
DX: R56.9 Unspecified convulsions (principal); J44.9 Chronic obstructive pulmonary disease, unspecified; I10 Essential (primary) hypertension; F17.210 Nicotine dependence, cigarettes, uncomplicated; Z20.822 Contact with and (suspected) exposure to COVID-19; Z86.73 Personal history of transient ischemic attack (TIA), and cerebral infarction without residual deficits; Z90.711 Acquired absence of uterus with remaining cervical stump; Z79.899 Other long term (current) drug therapy; Z79.891 Long term (current) use of opiate analgesic

== ENCOUNTER 2021-01-06 11:33 | Inpatient (IN) | payer OTHER ==
[~2021-01-06] VITALS: Ht 154.9 cm; Wt 36.3 kg
--- NOTE | ~2021-01-06 | EMS ---
[address] [address] EMS Patient Care Report Name: LIVIA ZAVALA Room #: 451-P ADM IN M.R.#: [id number] Admission: 01/06/21 Attend Phys: Lee Ann Carpenter Discharge: Date of : 41 Report #: [id number] THIS REPORT FOR: //name// Report Transmitted: 01/08/2021 14:28 EMS Care Summary [place], [place] Incident [id number] @ 01/06/2021 11:00 Incident Location [address] [place] [address] Patient LIVIA ZAVALA Female, 75 Years 1945 Patient Address [address] [place] [address] Patient History Dementia,Stroke/CVA,Lung Cancer,Urinary Tract Infection (UTI),Willson's-Palsy, Patient Allergies No known allergies, Patient Medications Lisinopril, Aspirin, Chief Complaint increasing weakness Disposition Transported No Lights/[place] Dispatch Reason Sick Person Transported To [facility] Narrative Arrived to find pt in front living room. states pt has dementia and lung cancer but he is concerned because she has had an increase in overall weakness and a decrease in appetite over the last week. He states she is acting like she has a UTI. did test positive for Covid 2 weeks ago[address] [address] EMS Patient Care Report Name: LIVIA ZAVALA Room #: 451-P ADM IN M.R.#: [id number] Admission: 01/06/21 Attend Phys: Lee Ann Carpenter Discharge: Date of : 41 Report #: [id number] shows the pt vaccination card which shows she has had dose one of two of the Pfeizer shot. states she has tested negative for covid "every time and last tested negative last week". Pt is lifted onto cot and secured with cot straps. Pt placed in mask. Pt placed in back of unit and transported without incident. Care to RN, rm 2. Initial Vitals @11:14P: 100,BP: 132/74,CO: 0,SpO2: 99, @11:16P: 89,BP: 138/82, @11:16P: 91,R: 16,Pain: 0/10,GCS: 14,Glucose: 107,CO: 1,SpO2: 99, Assessments @11:12MENTAL:Confused,SKIN:HEENT:Head/Face: No Abnormalities,Eyes: No Abnormalities,Neck/Airway: No Abnormalities,LUNG SOUNDS:General: No Abnormalities,Left Upper: No Abnormalities,Right Upper: No Abnormalities,Left Lower: No Abnormalities,Right Lower: No Abnormalities,ABDOMEN:General: No Abnormalities,Left Upper: No Abnormalities,Right Upper: No Abnormalities,Left Lower: No Abnormalities,Right Lower: No Abnormalities,PELVIS//GI:No Abnormalities,EXTREMITIES:Left Arm: No Abnormalities,Right Arm: No Abnormalities,Left Leg: No Abnormalities,Right Leg: No Abnormalities,PULSE:NEURO: Impression Generalized Weakness Procedures @11:12ALS AssessmentResponse: UnchangedSucceeded@PTAOxygen FlowRate: 2 Device: Nasal Cannula (NC) Succeeded Timeline PRECONSTRUCTION MANAGER,Oxygen FlowRate: 2 Device: Nasal Cannula (NC) Succeeded, 10:59,Call Received 10:59,Dispatch Notified 11:00,Dispatched 11:01,En Route 11:07,On Scene 11:10,At Patient 11:12,ALS Assessment,Response: UnchangedSucceeded, 11:14,BP: 132/74 M,PULSE: 100,RR: R,SPO2: 99 Ox,ETCO2: ,BG: ,PAIN: ,GCS: , 11:16,BP: / M,PULSE: 91,RR: 16 R,SPO2: 99 Ox,ETCO2: ,B,PAIN: 0,GCS: 14, 11:16,BP: 138/82 M,PULSE: 89,RR: R,SPO2: Ox,ETCO2: ,BG: ,PAIN: ,GCS: , 11:18,Depart Scene 11:29,At Destination 11:37,Call Closed Disclaimer [facility] [address] [place] [address] EMS Patient Care Report Name: LIVIA ZAVALA Room #: 451-P ADM IN M.R.#: [id number] Admission: 01/06/21 Attend Phys: Lee Ann Carpenter Discharge: Date of : 41 Report #: [id number] v1.1 Copyright 2020 [employer] This EMS Care Summary contains data elements from the applicable legal record (which may be displayed differently). It is designed to provide pertinent information for the following purposes: continuity of care, clinical quality, and state data reporting. The complete legal record is available to ED staff and administrators of the receiving hospital in [employer] Patient Tracker. All data is provided "as is."
[~2021-01-06 11:33] MED LIST changes: +KLOR-CON20 ME1 PO
[2021-01-06 11:34] VITALS: BP 140/74
[2021-01-06 11:49] LABS: URINE BLOOD NEGATIVE (Negative); URINE CLARITY CLEAR; URINE COLOR YELLOW; URINE GLUCOSE-RANDOM* NEGATIVE (Negative); URINE KETONES 1+ (Negative); URINE LEUKOCYTES-REFLEX NEGATIVE (Negative); URINE NITRITE-REFLEX NEGATIVE (Negative); URINE PROTEIN (DIPSTICK) NEGATIVE (Negative); URINE SPECIFIC GRAVITY 1.025 (1.005-1.035)
[2021-01-06 11:50] LABS: ICTOTEST (BILI CONFIRMATORY) Negative (Negative); URINE BILIRUBIN NEGATIVE (Negative)
[2021-01-06 12:04] LABS: ANION GAP 6 mmol/L (7-16); BUN 16 mg/dL (7-18); CALCIUM 11.6 mg/dL (8.5-10.1); CHLORIDE 101 mmol/L (98-107); CO2 30 mmol/L (21-32); CREATININE 1.2 mg/dL (0.6-1.0); GLUCOSE 88 mg/dL (74-106); POTASSIUM 4.1 mmol/L (3.5-5.1); SODIUM 137 mmol/L (136-145)
[2021-01-06 12:09] LABS: ABSOLUTE NEUTROPHILS 11.6 thou/uL (1.4-8.2); BASOPHILS 0.8 % (0.0-2.0); EOSINOPHILS 0.3 % (0.0-3.0); HEMATOCRIT 31.4 % (37.0-47.0); HEMOGLOBIN 9.9 gm/dL (12.0-15.0); LYMPHOCYTES 7.4 % (24.0-44.0); MCH 25.9 pg (26.0-34.0); MCHC 31.5 g/dL (28.0-37.0); MCV 82.1 fL (80.0-100.0); MONOCYTES 6.2 % (1.0-8.0); PLATELET COUNT 394 thou/uL (150-400); POLYS 85.3 % (36.0-66.0); RBC 3.83 mil/uL (4.20-5.00); WBC 13.5 thou/uL (4.0-11.0)
[2021-01-06 12:14] LABS: ALBUMIN 2.7 g/dL (3.4-5.0); SGOT 27 U/L (15-37); SGPT 10 U/L (14-59); TOTAL BILIRUBIN 0.3 mg/dL (0.2-1.0); TOTAL PROTEIN 8.1 g/dL (6.4-8.2); TROPONIN-I <0.06 ng/mL (<0.06)
[2021-01-06 17:46] VITALS: BP 147/62
[2021-01-06 18:14] VITALS: BP 146/75
[2021-01-06 19:29] VITALS: BP 143/67
--- NOTE | 2021-01-06 19:32 | NUR ---
PATIENT ARRIVED TO UNIT AT APPROX 1800 ACCOMPANIED BY SPOUSE. MED REC COMPLETE; MEDS SENT DOWN TO [facility]. PATIENT APPEARS A&OX2-3. NEAR NURSES STATION FOR SAFETY. DENIES PAIN. ENDORSED TO RECIEVING RN
[2021-01-07 00:13] VITALS: BP 134/64
--- NOTE | 2021-01-07 01:49 | NUR ---
ASSUMED CARE OF PT AT SHIFT CHANGE. PT IS ALERT BUT ONLY ORIENTED TO PERSON AND PLACE. FALL PECAUTION IN PLACE. PT IS A POOR HISTORIAN AND ADMISSION WAS DONE BY CHART REVIEW. ORDERS RECEIVED AND STARTED. PT WAS INCONTINENT THIS SHIFT. PT APPEARS TO BE COMFORTABLE. VSS AND NO S/S OF ACUTE DISTRESS. WILL CONTINUE TO MONITOR.
[2021-01-07 03:07] VITALS: BP 147/61
[2021-01-07 06:11] LABS: ANION GAP 11 mmol/L (7-16); BUN 17 mg/dL (7-18); CHLORIDE 102 mmol/L (98-107); CO2 26 mmol/L (21-32); CREATININE 1.1 mg/dL (0.6-1.0); GLUCOSE 69 mg/dL (74-106); POTASSIUM 3.8 mmol/L (3.5-5.1); SODIUM 139 mmol/L (136-145)
[2021-01-07 06:12] LABS: CALCIUM 9.2 mg/dL (8.5-10.1)
[2021-01-07 06:21] LABS: ALBUMIN 2.2 g/dL (3.4-5.0); PHOSPHORUS 3.8 mg/dL (2.5-4.9); SGOT 24 U/L (15-37); SGPT 8 U/L (30-65); TOTAL BILIRUBIN 0.5 mg/dL (0.2-1.0); TOTAL PROTEIN 6.4 g/dL (6.4-8.2); TROPONIN-I <0.06 ng/mL (<0.06)
--- NOTE | 2021-01-07 12:22 | EKG ---
[place] [address] [employer] [facility] [place] [address] ELECTROCARDIOGRAM REPORT Name: ZAVALALIVIA Room #: 451-P ADM IN M.R.#: [id number] Admission: 01/06/21 Attend Phys: Lee Ann Carpenter Discharge: Date of : 41 Report #: [id number] [facility] ED Test Date: 2021-01-06 Test Time: 11:45:22 Pat Name: LIVIA ZAVALA Department: Room: [facility] Gender: F Boiling House Hand: KIAN : 1945 Requested By: Aline Grande Order Number: [id number] MD: Allen Lepe Measurements Intervals [place] Rate: 79 P: 77 [place]: 171 QRS: -62 QRSD: 127 T: 89 QT: 423 QTc: 486 Interpretive Statements Sinus rhythm Left bundle branch block Compared to ECG 12/29/2020 12:59:44 No significant changes Electronically Signed On 01-07-2021 12:21:55 CDT by Allen Lepe [email or web address] <ELECTRONICALLY SIGNED> By: Allen Lepe MD 01/07/21 1221 1145 1145 Allen Lepe MD /ROSALINDA
--- NOTE | 2021-01-07 13:42 | NUR ---
Pt is alert and oriented to self and place only. She remains on 2L/NC . Lung are diminished from chronic smoking. Bowels sounds are hypoactive. She is not eating. She has right sided weakness. No tele or ACHS. She has an IV running in her right forearm running NS at 150/hour. Remains incontinent of bowel and bladder. Admitted with hypercalcemia with a CA level today of 11.6 and WBC's are 11.6. was covid positive 15 days ago. Hospital allowed him to visit today. Daughter came in afternoon. Pt is bedridden. Her bottom is red applied barrior cream with each change of nidia. BP was 146/95 all other VSS. Fall precautions in place. Call light within reach. Will monitor until end of shift.
[2021-01-07 19:29] VITALS: BP 110/46
--- NOTE | 2021-01-08 06:40 | NUR ---
ASSUEMD CARE OF PT AT [facility] CHANGE. PT ALERT BUT ONLY ORIENTED TO PERSON. FALL PRECAUTION IN PLACE. PT CAN BE IMPULSIVE AT TIMES. ASSESSMENT CHARTED. PT DENIED PAIN AND NAUSEA. 2L O2 CONTINUED AT 2L. PT SLEPT VERY LITTLE THIS SHIFT. VSS AND NO S/S OF ACUTE DISTRSS. WILL CONTINUE TO MONITOR.
[2021-01-08 07:13] VITALS: BP 143/64
[2021-01-08 12:20] VITALS: BP 94/69
[2021-01-08 13:23] VITALS: BP 129/73
--- NOTE | 2021-01-08 13:23 | NUR ---
Patient was found on the floor next to bed at approx 1220; unwitnessed fall/slid out of bed. Patient was checked on approx. 15 minutes prior to discovery of incident and bed light was green. Patient confused stating "the train was coming". Provider office was paged immediately after fall. Provider updated on patient status; no new orders except to "watch closely". No new bruising or limb deformities noted. No lesions or open wounds seen; patient denied pain at time of discovery and an hour after. No new findings upon post fall reassessment. left unit about 45 minutes prior to event; was called and left voicemail. Patient remains stable. Bed was re-zeroed and fall precautions reinforced. Will continue to watch closely
--- NOTE | 2021-01-08 15:21 | NUR ---
PT ADMITTED RELATED TO AMS, HYPERCALCEMIA. CM REVIEWED CHART AND SPOKE WITH CARE TEAM. CHART INDICATES PT RESIDES IN A HOUSE WITH SPOUSE. PT HAS 5 ADULT CHILDREN WHO ARE SUPPORTIVE AND ASSIST WITH NEEDS IN THE HOME SETTING. 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 PT DC'S HOME 12/[address] ACOSTA SPOKE WITH PT'S SPOSUE THIS ADMISSION AND HE INDICATED THAT HE IS RECEPTIVE TO ELECTING HOSPICE SERVICES UPON DC. CM ATTEMPTED PC TO PT'S SPOUSE THIS AFTERNOON AND HE INDICATED HE WAS ABOUT TO LAY DOWN HE WAS TIRED TODAY. HE ASKED THAT CM CALL BACK. CM TO FOLLOW UP WITH SPOUSE TO SEE IF HE HAS A PREFERED HOSPICE PROVIDER HE WANTED REFERRAL SENT TO. CM FOLLOWING REGARDING DC PLANNING.
[2021-01-08 18:23] VITALS: BP 126/64
--- NOTE | 2021-01-08 20:07 | NUR ---
PATIENT REMAINS A&OX4 IMPULSIVE NEARING BEDTIME. VITALS REMAIN STABLE. INCONTINENT, FREQUENT CHECKS ON PATIENT. POST FALL ASSESSMENT GOOD. STILL ON FLUIDS AND LASIX. NO FURTHER ISSUES. ENDOSRED TO FRANKLIN SEGURA
[2021-01-08 20:17] VITALS: BP 128/64
[2021-01-09 07:40] VITALS: BP 134/59
--- NOTE | 2021-01-09 08:23 | NUR ---
Assumed pt care at 1900. A/OX2,VSS. Denies pain on assessment. Incontinent of bladder this shift. Pt was impulsive at shift change trying to get out the bed and go home several times,spouse called with no answer,dtr Ursula called and talked to pt and pt calm down thereafter w/o further attempts to get up w/o calling for help. IVF infusing via LFA w/o problems. Fall precautions in place.
[2021-01-09 09:03] VITALS: BP 134/59
--- NOTE | 2021-01-09 09:15 | NUR ---
Pt is alert and oriented to self and place. IV in L FA running NS 150ml/hr. Pt is not running telemetry. She is incontinent of B/B. Receiving IV lasix once a day. Has redness on coccyx skin intact. Pt is able to turn self with reminders. She does not eat. Receiving dietary supplements. Tried to get up twice last night and fell. Bed in low position. Fall precautions in place. Will continue to monitor. Daughter at bedside.
--- NOTE | 2021-01-09 14:47 | NUR ---
EZIO MET WITH PT AND SPOUSE AT BEDSIDE THIS DAY. SPOUSE INDICATED THAT DR. ACOSTA HAD MENTIONED HOSPICE SERVICES SOMETHING THEY SHOULD CONSIDER BUT THAT HE DIDN'T FEE LIKE HE KNEW WHAT THEY WERE AND HE WAS RECEPTIVE TO INFO ABOUT IT AND HH SERVICES. CM SPOKE WITH THEM THEM ABOUT THE SERVICES AND WHAT THEY ENTAIL. HE INDICATED THAT HE WAS WANTING PT TO WORK WITH THERAPY IN AN EFFORT TO GET INDEPEDNENT POSSIBLE TO BE ABLE TO RETURN BACK HOME. CM NOTIFIED DR. ACOSTA AND HE ORDERED THERAPIES AND A COVID TEST. CM PROVIDED SPOKE WITH A [facility] SNF LIST AND HE INDICATED THAT HE WOULD LOOK IT OVER WITH HIS SON FRANNY . CM FOLLOWING.
[2021-01-09 15:40] VITALS: BP 141/64
[2021-01-09 16:06] LABS: KAPPA FREE LIGHT CHAINS 114.5 mg/L (3.3-19.4); KAPPA/LAMBDA RATIO 1.59 (0.26-1.65); LAMBDA FREE LIGHT CHAINS 72.2 mg/L (5.7-26.3)
[2021-01-09 19:53] VITALS: BP 135/53
--- NOTE | 2021-01-10 04:18 | NUR ---
Assumed pt care at 1900.A/OX2,confused but able to make needs known. VSS.Denies pain on assessment. Incontinent of bladder this shift,pericare done as needed. Covid test done,pending results. Fall precautions in place,frequent checks on pt,needs reminders to call before getting out of the bed. Resting w/o any distress at this time will continue to monitor pt.
[2021-01-10 06:20] VITALS: BP 130/58
--- NOTE | 2021-01-10 06:40 | NUR ---
craig pt tested positive for covid and transferred from to room 359 on the covid unit. vss, alert and oriented to self and situation. lungs clear but diminished, report from Reginald RN from [facility]. pt admitted from home on 01/06 with hypercalcemia and ams. those issues have resolved and pt was tested for covid prior to being transferred to a rehab facility and test came back positive 4w also reports an infrequent non-productive cough. arrived to 359 via bed with iv to lf infusing ns@150cc's/hr. 2 liters of o2 via nc. oriented to room call light system and poc.
[2021-01-10 07:23] VITALS: BP 121/56
--- NOTE | 2021-01-10 14:12 | NUR ---
PT IS A&O*2, CONFUSED AND FORGETFUL. 2 L OXYGEN ON ROOM AIR. PT WORKED WITH PT AND SIT UP TO CHAIR AT THIS TIME. PT HAS BEEN INCOTINENT AND BEDSITE PUREWICK SET UP. WILL APPLY IT AFTER TRANSFER PT BACK TO BED. PT REPORT NO PAIN. PT'S IS ALSO THE PRIMARY BARK GRINDER CALLED IN THE MORNING AND GIVE UPDATE. BED ALARM/CHAIR ALARM APPLIED. WILL KEEP MONITOR PT'S SAFETY AND VS UNTIL SHIFT CHANGE.
[2021-01-10 15:08] LABS: GLOBULIN TOTAL 4.4 g/dL (2.2-3.9); M-SPIKE 0.2 g/dL (Not Observed)
--- NOTE | 2021-01-10 15:32 | NUR ---
BETSEY reviewed chart and spoke with nursing and attending physician. Pt was transferred to 3W from 4W after having positive COVID test. Pt is afebrile and on 2L of O2. Pt is on IV lasix. Pt's spouse had tested positive for COVID last month. PT/OT evals completed today. BETSEY spoke with pt's spouse, Montrell, and their son, Kiran, via phone to discuss discharge plans. Recommendation made for pt to go to a SNF for continued reahb services. BETSEY discussed SNFs who are currently accepting COVID positive pts. Pt's family request referral to [facility]. BETSEY faxed referral and spoke with Clarissa in admissions. Pt may be ready for discharge as early as tomorrow. BETSEY updated attending physician. BETSEY is following to assist as needed [facility] discharge planning.
[2021-01-10 15:39] VITALS: BP 148/63
[2021-01-10 19:31] VITALS: BP 91/75
[2021-01-11 03:55] VITALS: BP 156/67
--- NOTE | 2021-01-11 05:48 | NUR ---
PROGRESS PT ALERT TO SELF SITUATION AND SURROUNDINGS. NO COMPLANTS OF PAIN VSS, LUNGS DIMINISHED AND A OCCASIONAL NON PRODUCTIVE COUGH NOTED. ON 2 LITERS O2 VIA NC. PT INCONTINENT OF URINE VOIDED LARGE AMOUNT. REPOSITIONS SELF WHEN ASKED AND INDEPENDENTLY. PLAN IS TO DC TO REHAB BEFORE RETURNING HOME.
[2021-01-11 08:00] VITALS: BP 127/58
[2021-01-11] MEDS ORDERED: CEFDINIR300 MG PO (09:15)
[2021-01-11 12:00] VITALS: BP 143/55
--- NOTE | 2021-01-11 12:25 | NUR ---
DISCHARGE NOTE: BETSEY received call from Clarissa at [facility] SNF, who states they are able to accept pt and they did receive insurance auth. [facility] can admit pt today. BETSEY updated attending physician. Pt is medically stable for discharge today. Discharge ppwk faxed to [facility] and received confirmation. Wheelchair van transportation scheduled for [phone] per facility's arrangements. Vistor policy at [facility]: pt will be on the ground level and have a window to the outside. Vaccinated visitors will be able to come inside to see her 14 days post positive COVID test. BETSEY spoke with pt's spouse, Montrell, via phone to provide update and notify of discharge plan. Contact info and address for [facility]. Pt's spouse is agreeable with plan and will contact the SNF to arrange delivery of clothes and personal items. BETSEY left voice message for pt's son, Kiran, to provide update and notify of discharge time and visitor policy. Chart copy requested. Nursing provided with number to call report. No additional SW needs identified at this time, but is available to assist should needs arise.
--- NOTE | 2021-01-11 14:58 | NUR ---
PATIENT DISCHARGED AT 1458 VIA WHEELCHAIR VAN TO [facility]. NURSE REPORT PHONED TO RN AT FACILITY. PATIENT BELONGINGS PACKED AND SENT WITH PATIENT, INCLUDING MEDICATIONS THAT WERE HELD IN PHARMACY. IV ACCESS DISCONINUED.
== END 2021-01-11 15:04 | DRG 640 ==
LOC: ER 11:33 → 3W 14:48 → EROBS 14:48 → 4W 14:48 → 3W 01-10 05:59
PROVIDERS: Emergency Medicine; Hospitalist; ADMIT Family Medicine; ATTEND Family Medicine
DX: E83.52 Hypercalcemia (principal); U07.1 COVID-19; E43 Unspecified severe protein-calorie malnutrition; C34.90 Malignant neoplasm of unspecified part of unspecified bronchus or lung; N17.9 Acute kidney failure, unspecified; Z68.1 Body mass index [BMI] 19.9 or less, adult; J45.909 Unspecified asthma, uncomplicated; J44.9 Chronic obstructive pulmonary disease, unspecified; I10 Essential (primary) hypertension; F03.90 Unspecified dementia, unspecified severity, without behavioral disturbance, psychotic disturbance, mood disturbance, and anxiety; R62.7 Adult failure to thrive; F17.210 Nicotine dependence, cigarettes, uncomplicated; E86.0 Dehydration; R53.81 Other malaise; Z86.73 Personal history of transient ischemic attack (TIA), and cerebral infarction without residual deficits; Z90.710 Acquired absence of both cervix and uterus; Z85.118 Personal history of other malignant neoplasm of bronchus and lung
CPT/HCPCS: 10040; 10779

== ENCOUNTER 2021-02-02 12:57 | Inpatient (IN) | payer OTHER ==
[~2021-02-02] VITALS: Ht 152.4 cm; Wt 56.2 kg
[2021-02-02 12:57] VITALS: BP 90/45
[2021-02-02 13:12] LABS: ABSOLUTE NEUTROPHILS 12.6 thou/uL (1.4-8.2); BASOPHILS 0.8 % (0.0-2.0); EOSINOPHILS 0.4 % (0.0-3.0); HEMATOCRIT 25.4 % (37.0-47.0); HEMOGLOBIN 8.2 gm/dL (12.0-15.0); LYMPHOCYTES 15.5 % (24.0-44.0); MCH 26.8 pg (26.0-34.0); MCHC 32.2 g/dL (28.0-37.0); MCV 83.1 fL (80.0-100.0); MONOCYTES 6.5 % (1.0-8.0); PLATELET COUNT 443 thou/uL (150-400); POLYS 76.8 % (36.0-66.0); RBC 3.06 mil/uL (4.20-5.00); RDW 16.9 % (10.5-14.5); WBC 16.4 thou/uL (4.0-11.0)
[2021-02-02 13:28] LABS: ALBUMIN 2.1 g/dL (3.4-5.0); CALCIUM 11.6 mg/dL (8.5-10.1); CREATININE 1.3 mg/dL (0.6-1.0); TOTAL BILIRUBIN 0.6 mg/dL (0.2-1.0)
[2021-02-02 13:31] LABS: POTASSIUM 2.8 mmol/L (3.5-5.1)
[2021-02-02 14:17] LABS: BE(vivo) 5.9 mmol/L (-2 to +3); HCO3 29.7 mmol/L (22.0-26.0); PO2 73.7 mmHg (80.0-100.0); pH 7.489 (7.360-7.450); sO2 95.8 % (92.0-98.0)
--- NOTE | 2021-02-02 14:46 | NUR ---
ASSUMED CARE AT THIS TIME
[2021-02-02 14:49] VITALS: BP 115/52
[2021-02-02 19:50] VITALS: BP 130/58
[2021-02-02 20:39] VITALS: BP 146/56
[2021-02-03 05:27] VITALS: BP 151/63
[2021-02-03 05:30] LABS: HEMATOCRIT 22.7 % (37.0-47.0); HEMOGLOBIN 7.2 gm/dL (12.0-15.0); MCH 26.8 pg (26.0-34.0); MCHC 31.9 g/dL (28.0-37.0); MCV 84.1 fL (80.0-100.0); RBC 2.7 mil/uL (4.20-5.00); RDW 17.5 % (10.5-14.5); WBC 10.9 thou/uL (4.0-11.0)
[2021-02-03 05:43] LABS: CALCIUM 10.7 mg/dL (8.5-10.1); CREATININE 1.1 mg/dL (0.6-1.0); POTASSIUM 3.3 mmol/L (3.5-5.1)
--- NOTE | 2021-02-03 06:47 | NUR ---
ADMITTED THIS PATIENT AROUND 02/02/21.ON NASAL CANNUL AT 2LPM, SATURATING WELL.NOT IN DISTRESS.ADMISSION DONE WITH LIMITED INFORMATIONS PATIENT DOESNT REMEMBER SOME QUESTIONS ASKED.ALL NEEDS ATTENDED.URINALYSIS TO BE COLLECTED PATIENT IS INCONTINENT AND DOESNT CALL WHEN SHE WILL VOID.
[2021-02-03 07:31] VITALS: BP 153/69
--- NOTE | 2021-02-03 14:12 | NUR ---
PT ALERT TIMES ONE SELF ONLY. VSS, IVF INFUSING PER ORDER. PT DENIES PAIN/SOA. PT TOLERATES MEDS AND MEALS. PT HUSBANDAT BEDSIDE THIS MORNING. WILL CONTINUE TO MONITOR.
[2021-02-03 15:15] VITALS: BP 166/65
[2021-02-03 20:15] VITALS: BP 152/65
[2021-02-04 04:45] VITALS: BP 139/62
--- NOTE | 2021-02-04 05:03 | NUR ---
RECEIVED THE PATIENT ALERT AN DORIENTED TO SELF, SOMETIMES FORGETFUL.ON NASAL CANNULA AT 2LPM, SATURATING WELL.NOT IN PAIN OR DISTRESS.ALL NEEDS ATTENDED.
--- NOTE | 2021-02-04 07:26 | NUR ---
REPORT GIVEN TO 4S STAFF.TRANSFERED PATIENT TO ROOM 438 ON STABLE CONDITION.URINALYSIS STILL TO BE COLLECTED.
[2021-02-04 08:10] VITALS: BP 152/67
[2021-02-04 13:28] LABS: HEMOGLOBIN 7.2 gm/dL (12.0-15.0); MCH 26.4 pg (26.0-34.0); MCHC 31.3 g/dL (28.0-37.0); MCV 84.2 fL (80.0-100.0); RBC 2.73 mil/uL (4.20-5.00); RDW 17.5 % (10.5-14.5)
[2021-02-04 13:40] LABS: ALBUMIN 1.8 g/dL (3.4-5.0); CALCIUM 10.4 mg/dL (8.5-10.1); CREATININE 0.9 mg/dL (0.6-1.0); POTASSIUM 3.8 mmol/L (3.5-5.1); TOTAL BILIRUBIN 0.2 mg/dL (0.2-1.0); TOTAL PROTEIN 6.2 g/dL (6.4-8.2)
--- NOTE | 2021-02-04 14:31 | NUR ---
A/O X 1. 2 L 02 via nasal cannula. Right hand IV ns @ 50 mls/hr. Very sleepy. at beside. Patient keeps taking her O2 OFF.
[2021-02-04 15:40] VITALS: BP 165/77
[2021-02-04 20:19] VITALS: BP 157/83
--- NOTE | 2021-02-05 05:01 | NUR ---
ASSUMED PT CARE AT 1910. PT IS ALERT AND EASILY FOLLOWS INSTRUCTIONS. PT HAS REDNESS TO THE SACRUM; BARRIER CREAM WAS APPLIED AND REPOSITIONED Q2HRS. PT HAS CONTRATURES TO BLE. PT IS ON 2L VIA NC WHICH IS IN PLACE. PT WAS COOPERATIVE. VS ARE WITHIN RANGE AND MEDS WERE GIVEN PER EMAR ORDERS. NO VISIBLE SIGN OF DISTRESS WAS NOTED. FALL PRECAUTIONS IN PLACE. WILL CONTINUE TO MONITOR.
[2021-02-05 07:40] VITALS: BP 149/83
[2021-02-05 09:45] VITALS: BP 149/83
[2021-02-05 10:55] LABS: HEMATOCRIT 21.6 % (37.0-47.0); HEMOGLOBIN 6.7 gm/dL (12.0-15.0); MCH 26.4 pg (26.0-34.0); MCHC 31.1 g/dL (28.0-37.0); RDW 17.4 % (10.5-14.5)
[2021-02-05 10:56] LABS: MCV 84.7 fL (80.0-100.0); RBC 2.55 mil/uL (4.20-5.00); WBC 13.1 thou/uL (4.0-11.0)
[2021-02-05 11:13] LABS: ALBUMIN 1.7 g/dL (3.4-5.0); CALCIUM 10.2 mg/dL (8.5-10.1); CREATININE 0.8 mg/dL (0.6-1.0); POTASSIUM 3.9 mmol/L (3.5-5.1); TOTAL BILIRUBIN 0.3 mg/dL (0.2-1.0); TOTAL PROTEIN 5.9 g/dL (6.4-8.2)
[2021-02-05 15:07] VITALS: BP 159/77
--- NOTE | 2021-02-05 15:29 | NUR ---
ASSUMED CARE OF PT THIS MORNING. PT ALERT TO SELF. PT AT BEDSIDE. PT IS A TOTAL FEED. O2 PER NC. VS CHARTED. Q2 TURNS. CONTINUE WITH POC
[2021-02-05 19:55] VITALS: BP 159/78
[2021-02-06 03:00] VITALS: BP 156/76
--- NOTE | 2021-02-06 03:29 | NUR ---
PATIENT RESTING IN HER BED AAOX2. PATIENT DENIES PAIN OR NEEDS AT THIS TIME. PT HAS PURWICK IN PLACE. COMPLIANT WITH MEDICATION AND TREATMENT. PT IS A 2 PERSON ASSIST AND NEEDS ASSISTANCE BEIG TURNED IN BED. VITAL SIGNS STABLE. NO SKIN BREAKDOWN NOTED AT THIS TIME. UPON DOING CHART CHECK THIS AM, PATIENT NOTED TO HABE HGB 6.7 AND HCT 21.6. WILL CONTINUE TO MONITOR FOR CHANGES IN PATIENT STATUS.
--- NOTE | 2021-02-06 07:32 | EKG ---
[address] [place] [address] ELECTROCARDIOGRAM REPORT Name: LIVIA ZAVALA Room #: 438-P ADM IN M.R.#: [id number] Admission: 02/02/21 Attend Phys: Derick Tobias MD Discharge: Date of : 41 Report #: [id number] [facility] ED Test Date: 2021-02-02 Test Time: 12:59:47 Pat Name: LIVIA JAMESGOMERY Department: Room: [facility] Gender: F Tap Out Operator: meghna : 1945 Requested By: Smith Blevins Order Number: [id number] MD: Franklyn Singh Measurements Intervals [place] Rate: 99 P: 73 [place]: 165 QRS: -41 QRSD: 134 T: 90 QT: 400 QTc: 514 Interpretive Statements Sinus tachycardia Ventricular premature complex Left bundle branch block Compared to ECG 01/06/2021 11:45:22 Ventricular premature complex(es) now present Sinus rhythm no longer present Electronically Signed On 02-06-2021 7:32:30 CDT by Franklyn Singh [email or web address] <ELECTRONICALLY SIGNED> By: Franklyn Singh MD, [facility] 02/06/21 0732 1259 1259 Franklyn Singh MD, [facility] /EPI
--- NOTE | 2021-02-06 15:12 | NUR ---
ASSUMED CARE AT SHIFT CHANGE. PT A/OX 1-2. HAS PAIN IN BILAT HIPS WITH MOVEMENT. SPOUSE CONCERNED PT MAY HAVE FELL AT FACILITY PRIOR TO ADMISSION HERE. NO BRUISING OR DEFORMITIES NOTED ON HIPS. PT HAS POOR APPETITE, HAS NOT EATEN ANY MEALS TODAY THUS FAR. SPOUSE STATES PT DRINKS PROTEIN SHAKES AT HOME SO SHAKES ORDERED TODAY FOR EACH MEAL. PT WORKED WITH PT AND OT TODAY, DID BETTER THAN YESTERDAY PER THERAPIST. PLAN FOR POSSIBLE DC HOME WITH HOME HEALTH TODAY IF ALL EQUIPMENT IS READY (HOSPITAL BED? PER SPOUSE). WILL CONT TO MONITOR AND FOLLOW POC.
[2021-02-06 15:35] VITALS: BP 156/76
--- NOTE | 2021-02-06 15:42 | NUR ---
Case opened to follow for dc planning. Chart reviewed and case discussed with the care team. Litigation Partner vistited briefly with the pt at bedside. She is weak and not able to answer assessment questions. Litigation Partner spoke with her spouse Montrell. Family does not want her going back to SNF at [facility]. They have talked with the attending and perfer to take her home with hh and a hospital bed. They did discuss hospice referral but want to hold off for now and see if she can get stronger at home with HH. They denied HH provider preference and requesting that they be in network with her [facility] plan and be able to provide ST as well as PT/OT. She covid recovered from November and is not getting treatment for her lung cancer. She has a ramp to enter her ranch style home. Her w/c is in the room but she may need [place] transport pending on how she is doing tomorrow. She has home o2 per [facility] and they would like to use them for a hospital bed referral. Referrals faxed and called to [facility] and [facility] . Both can provide service. The attending has been notified of need for a hospital bed script and hopes for delievery and dc home tomorrow. Pt's hgb low today. Will followup with all parties tomorrow.
[2021-02-06 20:56] VITALS: BP 169/87
[2021-02-07 00:30] VITALS: BP 155/71
--- NOTE | 2021-02-07 03:53 | NUR ---
ASSESSED AT START OF SHIFT. PT RESTING IN BED. REPOSITIONED FOR COMFORT. IV INTACT AND FLUIDS INFUSING. FOLLEY TO D/D. FALL PREC IN PLACE. ON 2L OF O2. NO FURTHER SIGNS OF DISCOMFORT WILL CONT TO MONITOR.
[2021-02-07 07:33] VITALS: BP 146/81
--- NOTE | 2021-02-07 11:50 | NUR ---
A/O X 1 SELF. 2L o2 via nasal cannula. Right AC IV. SR ON TELE. NS infusing @ 50 mls/hr. Incont b/b. Spoke with dependency case manager Azalea- awaiting arrival of hospital bed at her house for discharge. Went over dischare teaching with at bedside.
[2021-02-07 14:51] VITALS: BP 156/76
--- NOTE | 2021-02-07 14:52 | NUR ---
Pt dcing home at 6pm this evening via [facility] van service with o2. Van ride vouched per cm to facilitate safe dc home. Spouse was here this am and dc plan reviewed. Script for hospital bed faxed to [facility] and confirmed. They will also need additional documentation from the attending. Attending notified. [facility] to [facility] bed this afternoon and spouse has went home to wait for it. He has reveiwed the dc instructions with nursing. Mojgan dixon liason here and has rec'd orders for soc tomorrow. No other needs noted. Pt has her w/c in the room.
[2021-02-07 16:17] VITALS: BP 177/87
== END 2021-02-07 18:07 | disposition home health service (06) | DRG 871 ==
LOC: ER 12:57 → 4S 14:42 → EROBS 14:42 → 2N 14:42 → 4S 02-04 07:03
PROVIDERS: Emergency Medicine; ADMIT Family Medicine; ATTEND Family Medicine
DX: A41.9 Sepsis, unspecified organism (principal); E43 Unspecified severe protein-calorie malnutrition; J96.20 Acute and chronic respiratory failure, unspecified whether with hypoxia or hypercapnia; Z20.822 Contact with and (suspected) exposure to COVID-19; J45.909 Unspecified asthma, uncomplicated; J44.9 Chronic obstructive pulmonary disease, unspecified; I10 Essential (primary) hypertension; F03.90 Unspecified dementia, unspecified severity, without behavioral disturbance, psychotic disturbance, mood disturbance, and anxiety; F17.210 Nicotine dependence, cigarettes, uncomplicated; R91.8 Other nonspecific abnormal finding of lung field; E87.6 Hypokalemia; R53.81 Other malaise; E83.52 Hypercalcemia; D64.9 Anemia, unspecified; Z85.118 Personal history of other malignant neoplasm of bronchus and lung; Z68.24 Body mass index [BMI] 24.0-24.9, adult; Z90.710 Acquired absence of both cervix and uterus; Z79.899 Other long term (current) drug therapy
CPT/HCPCS: 10081; 10100

== ENCOUNTER 2021-02-13 11:29 | Inpatient (IN) | payer OTHER ==
[~2021-02-13] VITALS: Ht 152.4 cm; Wt 40.8 kg
--- NOTE | ~2021-02-13 | EMS ---
[address] [address] EMS Patient Care Report Name: LIVIA ZAVALA Room #: 451-P ADM IN M.R.#: [id number] Admission: 02/13/21 Attend Phys: Derick Tobias MD Discharge: Date of : 41 Report #: [id number] THIS REPORT FOR: //name// Report Transmitted: 02/15/2021 14:51 EMS Care Summary [place], [place]/[facility] Incident [id number] @ 02/13/2021 11:00 Incident Location [facility] [place] [address] Patient LIVIA ZAVALA Female, 75 Years 1945 Patient Address [address] [place] [address] Patient History Dementia,Stroke/CVA,Lung Cancer,Urinary Tract Infection (UTI),Willson's-Palsy, Patient Allergies No known allergies, Patient Medications Aspirin, Lisinopril, Chief Complaint Altered mental status Disposition Transported No Lights/[place] Dispatch Reason Sick Person Transported To [facility] Narrative M42 arrived on scene to find the patient on her left lateral side in her bed. Patient's said she was last normal at 4 this morning. He had woken up around 8 and she was not responding to him. Patient would look at you when you called her name but did not try to vocalize anything. Patient was able to [address] [place] [address] EMS Patient Care Report Name: LIVIA ZAVALA Room #: 451- ADM IN M.R.#: [id number] Admission: 02/13/21 Attend Phys: Derick Tobias MD Discharge: Date of : 41 Report #: [id number] squeeze both of her hands very lightly. Patient's said she had been bed bound for the past 40 days. Patient was currently being treated for a low potassium and a UTI. En route to the hospital no changes in the patient condition occurred. M42 arrived on scene of the hospital and patient care was transferred to the RN. Initial Vitals @11:14P: 122,R: 16,BP: 114/71,Pain: 0/10,GCS: 13,CO: 2,SpO2: 97,Revised Trauma: 12, @11:10P: 125,R: 16,BP: 121/73,Pain: 0/10,GCS: 13,Glucose: 117,SpO2: 97,Revised Trauma: 12, Assessments @11:04MENTAL:Person Oriented,Confused,SKIN:HEENT:LUNG SOUNDS:ABDOMEN:PELVIS//GI:EXTREMITIES:PULSE:NEURO:@11:18MENTAL:Confused,Person Oriented,SKIN:HEENT:Head/Face: No Abnormalities,Eyes: No Abnormalities,Neck/Airway: No Abnormalities,LUNG SOUNDS:General: No Abnormalities,Left Upper: No Abnormalities,Right Upper: No Abnormalities,Left Lower: No Abnormalities,Right Lower: No Abnormalities,ABDOMEN:General: No Abnormalities,Left Upper: No Abnormalities,Right Upper: No Abnormalities,Left Lower: No Abnormalities,Right Lower: No Abnormalities,PELVIS//GI:No Abnormalities,EXTREMITIES:Left Arm: No Abnormalities,Right Arm: No Abnormalities,Left Leg: No Abnormalities,Right Leg: No Abnormalities,PULSE:NEURO:No Abnormalities, Impression Altered Mental Status Procedures @11:04ALS AssessmentResponse: UnchangedSucceeded@11:13Saline Lock 10cc (20 ga) Site: Forearm-RightResponse: UnchangedSucceeded Timeline 10:58,Call Received 10:58,Dispatch Notified 11:00,Dispatched 11:01,En Route 11:03,On Scene 11:04,At Patient 11:04,ALS Assessment,Response: UnchangedSucceeded, 11:10,BP: 121/73 M,PULSE: 125,RR: 16 R,SPO2: 97 Ox,ETCO2: ,B,PAIN: 0,GCS: 13, 11:13,Saline Lock 10cc 20 ga Site: Forearm-Right,Response: UnchangedSucceeded, 11:14,BP: 114/71 M,PULSE: 122,RR: 16 R,SPO2: 97 Ox,ETCO2: ,BG: ,PAIN: 0,GCS: 13, 11:16,Depart Scene [address] [address] EMS Patient Care Report Name: LIVIA ZAVALA Room #: 451-P ADM IN M.R.#: [id number] Admission: 02/13/21 Attend Phys: Derick Tobias MD Discharge: Date of : 41 Report #: [id number] 11:26,At Destination 11:46,Call Closed Disclaimer v1.1 Copyright 2020 [employer] This EMS Care Summary contains data elements from the applicable legal record (which may be displayed differently). It is designed to provide pertinent information for the following purposes: continuity of care, clinical quality, and state data reporting. The complete legal record is available to ED staff and administrators of the receiving hospital in [employer] Patient Tracker. All data is provided "as is."
[2021-02-13 11:31] VITALS: BP 135/68
[2021-02-13 12:01] LABS: ABSOLUTE NEUTROPHILS 15.3 thou/uL (1.4-8.2); BASOPHILS 0.2 % (0.0-2.0); HEMATOCRIT 25.6 % (37.0-47.0); HEMOGLOBIN 8.1 gm/dL (12.0-15.0); MCH 27.3 pg (26.0-34.0); MCHC 31.6 g/dL (28.0-37.0); MCV 86.3 fL (80.0-100.0); MONOCYTES 4.7 % (1.0-8.0); PLATELET COUNT 424 thou/uL (150-400); POLYS 85.1 % (36.0-66.0); RBC 2.97 mil/uL (4.20-5.00); RDW 17.8 % (10.5-14.5); WBC 17.9 thou/uL (4.0-11.0)
[2021-02-13 12:05] LABS: CALCIUM 11.4 mg/dL (8.5-10.1); CREATININE 1.3 mg/dL (0.6-1.0); POTASSIUM 4.2 mmol/L (3.5-5.1)
[2021-02-13 12:15] LABS: ALBUMIN 2.1 g/dL (3.4-5.0); MAGNESIUM 2.5 mg/dL (1.8-2.4); TOTAL BILIRUBIN 0.3 mg/dL (0.2-1.0)
--- NOTE | 2021-02-13 13:00 | NUR ---
PT CHANGED, PT HAS PRESSURE WOUND TO COCCYX REGION, BARRIER CREAM APPLIED
[2021-02-13 13:17] LABS: URINE BILIRUBIN NEGATIVE (Negative); URINE BLOOD NEGATIVE (Negative); URINE CLARITY CLEAR; URINE COLOR YELLOW; URINE GLUCOSE-RANDOM* NEGATIVE (Negative); URINE KETONES NEGATIVE (Negative); URINE LEUKOCYTES-REFLEX NEGATIVE (Negative); URINE NITRITE-REFLEX NEGATIVE (Negative); URINE PROTEIN (DIPSTICK) NEGATIVE (Negative); URINE UROBILINOGEN 0.2 E.U./dl (0.2-1.0)
[2021-02-13 13:26] LABS: AMP/METHAMP Negative (Negative); BARBITURATES Negative (Negative); BENZODIAZEPINES Negative (Negative); COCAINE Negative (Negative); METHADONE Negative (Negative); OPIATES Negative (Negative); PCP Negative (Negative)
--- NOTE | 2021-02-13 19:09 | NUR ---
REPORT GIVEN TO COLTON DOVE AT THIS TIME
[2021-02-14 05:09] LABS: HEMATOCRIT 23.1 % (37.0-47.0); HEMOGLOBIN 7.3 gm/dL (12.0-15.0); MCH 27.7 pg (26.0-34.0); MCHC 31.8 g/dL (28.0-37.0); MCV 87.1 fL (80.0-100.0); RBC 2.65 mil/uL (4.20-5.00); RDW 17.4 % (10.5-14.5); WBC 16.7 thou/uL (4.0-11.0)
[2021-02-14 05:28] LABS: CALCIUM 11.3 mg/dL (8.5-10.1); CREATININE 1.2 mg/dL (0.6-1.0); POTASSIUM 3.6 mmol/L (3.5-5.1)
--- NOTE | 2021-02-14 09:22 | EKG ---
[address] [place] [address] ELECTROCARDIOGRAM REPORT Name: ZAVALA,LIVIA Room #: 170-6 ADM IN M.R.#: [id number] Admission: 02/13/21 Attend Phys: Derick Tobias MD Discharge: Date of : 41 Report #: [id number] [facility] ED Test Date: 2021-02-13 Test Time: 11:37:20 Pat Name: LIVIA ZAVALA Department: Room: 170 Gender: F [employer]: TAMAR : 1945 Requested By: Joon Lopes Order Number: [id number] MD: Franklyn Singh Measurements Intervals Sebastian Rate: 117 P: 75 PA: 142 QRS: -51 QRSD: 109 T: 108 QT: 323 QTc: 451 Interpretive Statements Sinus tachycardia Incomplete left bundle branch block LVH with secondary repolarization abnormality Compared to ECG 02/02/2021 12:59:47 Left ventricular hypertrophy now present Early repolarization now present Ventricular premature complex(es) no longer present Electronically Signed On 02-14-2021 9:21:56 CDT by Franklyn Singh [email or web address] <ELECTRONICALLY SIGNED> By: Franklyn Singh MD, FAC 02/14/21 0921 1137 [id number] Franklyn Singh MD, [facility] /EPI
[2021-02-14 09:56] VITALS: BP 168/90
--- NOTE | 2021-02-14 16:00 | NUR ---
PT. CLEANED OF URINE. GOWN AND BED CHANGED. PT. PLACED ON CLEAN, DRY SHEETS. PT. APPEARS COMFORTABLE AND EXHIBITS PAIN WITH REPOSITIONING. PT. FAMILY WAS HERE EARLIER TODAY.
[2021-02-14 19:20] VITALS: BP 160/70
--- NOTE | 2021-02-15 02:38 | NUR ---
PT ADMITTED TO THE UNIT AT 1845 WITH C/O AMS,CHEST MASS,WEAKNESS AND HYPER CALCEMIA.PT IS ALERT AND NOT ORIENTED.PT REPONSE TO TURNING AND NOISE BUT NONVERBAL.PT ADMISSION DONE AND PICTURE OF SACRAL WOUND TAKEN.PT ON 2L OF O2 VIA NC.PT IS INCONTINENT TO B/B.WILL CONTINUE TO MONITOR
[2021-02-15 07:53] VITALS: BP 171/77
--- NOTE | 2021-02-15 12:51 | NUR ---
Assumed pt care at 7am.Pt in bed sleeping on and off but arouseable to name. Pt nonverbal. Assessment completed.vss.Dr Tobias here,no new order noted. Family here to visit,updates given. Oral care done. Repositioned pt for comfort.Fall bundle in place. Will continue to monitor.
--- NOTE | 2021-02-15 15:39 | NUR ---
PT ADMITTED RELATED TO AMS,CHEST MASS,WEAKNESS,HYPERCALCEMIA. CM REVIEWED CHART AND SPOKE WITH CARE TEAM. CM CALLED AND SPOKE WITH PT'S SPOUSE JONAS. HE INDICATED THAT THEY RESIDE IN A RANCH STYLE HOUSE WITH WITH A RAMP TO ENTER AND NO STEPS INSIDE. SPOUSE INDICATED THAT PT HAD HOME O2 THROUGH [facility] AND A HOSPITAL BED AND WC FOR HOME USE. PT HAD BEEN ON SERVICE WITH [facility]. DR. ACOSTA HAD SPOKEN WITH PT'S SPOUSE AT BEDSIDE THIS AM ABOUT POSSIBLY ELECTING HOSPICE SERVICES. CM FOLLOWED UP WITH HIM AND HE INDICATED THAT HE WANTS TO DC HOME AND RESUME HH SERVICES WITH [facility] FOR THE NEXT MONTH TO SEE IF PT IMPROVES IF IN THAT TIME SHE DOESN'T HE WILL REACH OUT TO DAVE ABOUT POSSIBLE HOSPICE SERVICES. CM NOTIFIED [facility] THEY ARE FOLLOWING. ANTICIPATE POSSIBLE DC HOME TOMORROW. CM FOLLOWING REGARDING DC PLANNING.
[2021-02-15 19:07] VITALS: BP 157/64
--- NOTE | 2021-02-16 02:30 | NUR ---
PT CARE ASSUMED AT 1900.PT IN BED SLEEPING MOST OF THE SHIFT BUR AROUSABLE TO NAME AND NOISE AND TOUCH.PT NONVERBAL BUT REACTS TO NAME.PT IS INCONTINENT TO B/B.PT HAS A SACRAL WOUND.IV ACCESS ON LT HAND WITH NS AT80CC/HR.PT IS ON 2L OF O2 VIA NC.FALL PRECAUTIONS IN PLACE.WILL CONTINUE TO MONITOR PER POC
[2021-02-16 07:51] VITALS: BP 172/84
--- NOTE | 2021-02-16 11:37 | NUR ---
DR. ACOSTA INDICATED THAT PT IS NOW RECEPTIVE TO EVAL AND POSSIBLE ADMISSION TO HOSPICE HOUSE. CM FAXED REFERRAL AND [facility] NURSE WITH HOSPICE WILL VISIT AT BEDSIDE AT 12:00. CM NOTIFIED PT'S SPOUSE. CM FOLLOWING REGARDING DC PLANNING.
--- NOTE | 2021-02-16 13:05 | NUR ---
Assumed pt care at 7am.Pt in bed sleeping on and off. Oral care given and repositioned for comfort.Dr Tobias here,order noted. hospice here for eval and possible dc to hospice house today. Eval completed and pt was accepted to [facility]. aware and at bs most of the time today.Report will be given prior to dc pt.Will continue to monitor.
[2021-02-16 15:23] VITALS: BP 161/78
== END 2021-02-16 17:30 | disposition hospice, home (50) | DRG 180 ==
LOC: ER 11:29 → EROBS 14:35 → 4W 14:35 → EROBS 21:38 → 4W 02-14 18:41
PROVIDERS: Nurse Practitioner; ADMIT Family Medicine; ATTEND Family Medicine
DX: C34.01 Malignant neoplasm of right main bronchus (principal); G93.41 Metabolic encephalopathy; E43 Unspecified severe protein-calorie malnutrition; J96.01 Acute respiratory failure with hypoxia; N17.9 Acute kidney failure, unspecified; Z68.1 Body mass index [BMI] 19.9 or less, adult; E83.52 Hypercalcemia; Z20.822 Contact with and (suspected) exposure to COVID-19; J45.909 Unspecified asthma, uncomplicated; J44.9 Chronic obstructive pulmonary disease, unspecified; I10 Essential (primary) hypertension; F03.90 Unspecified dementia, unspecified severity, without behavioral disturbance, psychotic disturbance, mood disturbance, and anxiety; Z66 Do not resuscitate; R91.8 Other nonspecific abnormal finding of lung field; F17.210 Nicotine dependence, cigarettes, uncomplicated; Z90.710 Acquired absence of both cervix and uterus; Z85.118 Personal history of other malignant neoplasm of bronchus and lung; Z86.73 Personal history of transient ischemic attack (TIA), and cerebral infarction without residual deficits
CPT/HCPCS: 10040